=== PATIENT | male | born 1960 | race Caucasian/White ===

== ENCOUNTER 2024-06-26 07:59 | Emergency (ER) | payer MEDICARE, SELFPAY ==
--- NOTE | ~2024-06-26 | XR_ITS ---
EXAMINATION: XR CHEST CLINICAL INFORMATION: Chest pain. COMPARISON: Chest radiograph 06/19/2010. TECHNIQUE: Frontal view of the chest was obtained. FINDINGS: Normal heart size. Medium sternotomy wires, aortic valve replacement and mediastinal surgical clips are present. New multifocal reticular, hazy and nodular-like airspace opacities, for example nodular-like opacity measuring up to 2.6 cm overlying the region of the right anterior sixth rib. No pleural effusion. No pneumothorax. No displaced osseous fractures. 8 cervical spinal fusion hardware is noted. XR/XR chest 1V IMPRESSION: New multifocal reticular, hazy and nodular-like airspace opacities, recommend clinical correlation for acute respiratory infectious and inflammatory processes, and short-term follow-up with CT chest in 1-3 months to ensure resolution. Some of the nodular-like opacities overlie the ribs and might be associated with osseous abnormalities, though less favored; this should be followed up at the time of the CT chest. Electronically signed by: Neelam Garrison MD 06/26/2024 09:23 AM EDT
[2024-06-26 08:05] VITALS: BP 121/85; PULSE 111; RESP 18; TEMP 36.4; O2SAT 98
--- NOTE | 2024-06-26 08:05 | ECG_ITS ---
Test Reason : chest pain Blood Pressure : / mmHG Vent. Rate : 099 BPM Atrial Rate : 000 BPM P-R Int : 000 ms QRS Dur : 090 ms QT Int : 382 ms P-R-T Axes : 000 -37 077 degrees QTc Int : 490 ms Normal sinus rhythm with PAC's Left axis deviation Minimal voltage criteria for LVH, may be normal variant ( Aldo product ) Anterior infarct , age undetermined Abnormal ECG When compared with ECG of 21-NOV-2005 15:06, QRS axis Shifted left Premature atrial complexes are now Present Referred By: Generic ED Physician Electronically Signed By:FREDDIE CASAREZ
[2024-06-26 08:14] VITALS: BP 121/85; PULSE 105; RESP 20; TEMP 36.4; O2SAT 98; BMI 22.7
--- NOTE | 2024-06-26 08:22 | ED.CHESTPAIN ---
HPI - Chest Pain General Chief Complaint: Chest Pain Stated Complaint: Bilateral feet sweeling Time Seen by Provider: 06/26/24 08:06 Source: patient Mode of arrival: ambulatory Limitations: no limitations History of Present Illness HPI narrative: This is a 64 years old patient with history of coronary artery disease status post stent in [place] also status post valve replacement and chronic AFib anticoagulated with apixaban presented to the emergency department complaining of swelling of the feet for about 2 days and complaining of chest pain as well since yesterday pain is not exertional. 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 complaint: chest pain Pertinent past history: coronary artery disease Onset (ago): day(s) (1) Timing of current episode: episodic Onset: during rest Pain location: substernal and left chest Pain radiation: none Severity: mild Risk Factors Coronary artery disease risk factors: smoking history Thoracic aortic dissection risk factors: none Related Data Previous Rx's ?Medication ?Instructions ?Recorded furosemide 20 mg tablet (Lasix) 20 mg PO DAILY #20 tabs 06/26/24 metoprolol succinate 50 mg 50 mg PO DAILY #30 tabs 06/26/24 tablet,extended release 24 hr (Toprol XL) Allergies Allergy/AdvReac Type Severity Reaction Status Date / Time No Known Allergies Allergy Verified 06/26/24 08:19 Review of Systems Constitutional: Constitutional: Reports no additional constitutional complaints Eyes: Eyes: Reports no additional eye complaints ENT: Reports system reviewed and no additional complaints, except as documented Cardiovascular: Cardiovascular: Reports no additional cardiovascular complaints [facility] Past Medical History Attestation statement: The following information was validated with the patient. [facility] Narrative: CAD/valve replacement/AFib Social History Social History Smoked in Last 30 Days: Yes Use of substances other than those prescribed or required for medical reasons: Yes Substance Use Type: Marijuana Substance Use Frequency: Occasionally Advance Directives: No Advance Directives Information Provided: Yes Do you have a plan to hurt others: No Plan Physical Exam Vital Signs: Vital Signs: Last Vital Signs Temp 97.5 F 06/26/24 08:14 Pulse 89 06/26/24 10:00 Resp 16 06/26/24 10:00 BP 123/74 06/26/24 10:00 Pulse Ox 100 06/26/24 10:00 O2 Del Method Room Air 06/26/24 10:00 BMI result Body Mass Index 22.7 Const: General: cooperative Nutritional Appearance: average body habitus Orientation/consciousness: patient oriented x3 HEENT: Head: Yes normal to inspection General nose exam: Normal external nose present Face and sinus: Yes normal facial exam Neck: Neck: Yes normal visual inspection Chest: Chest palpation & inspection: normal inspection of the chest Resp: Effort & Inspection: normal respiratory effort Auscultation: clear to auscultation bilaterally Cardio: Jugular venous distension: no JVD Rhythm: abnormal rhythm GI: Inspection: Yes normal to inspection Palpation (GI): Soft to palpation, not firm, nontender and no guarding Percussion: Yes normal to percussion Skin: General skin exam: no rashes or lesions noted Neuro: General: patient oriented x3 Course Reevaluation(s) Reevaluation #1: Delta trop is flat, patient has an abnormal chest x-ray I was going to do a CT but the patient refused the CT. I consulted case liner, case liner Gabbie gave the patient a list of primary care physician accepting his insurance Time: 10:55 Medications Administered Discontinued Medications Generic Name Dose Route Start Last Admin Trade Name Freq PRN Reason Stop Dose Admin Furosemide 20 mg 06/26/24 08:27 06/26/24 08:40 Furosemide 20 Mg Tablet PO 06/26/24 08:28 20 mg ONCE ONE Administration Protocol Metoprolol Succinate 50 mg 06/26/24 08:27 06/26/24 08:40 Metoprolol Succinate Er 50 Mg Tab.Er.24h PO 06/26/24 08:28 50 mg ONCE ONE Administration Protocol Medical Decision Making Medical Decision Making [facility] Narrative: Patient presented with legs edema chest pain due EKG labs chest x-ray Differential Diagnosis Differential Diagnoses: The differential diagnosis associated with the presentation includes CHF/ACS/non cardiac chest pain Admission/Observation Consideration of admission/observation: Escalation of care including admission/observation considered Lab Data [facility] Lab Attestation statement: I reviewed the patient's lab results. 06/26/24 08:34 06/26/24 08:34 Labs: Lab Results 06/26/24 06/26/24 Range/Units 08:34 09:58 WBC 7.1 (4.8-10.8) X10*3/uL RBC 5.03 (4.60-5.80) X10*6/uL Hgb 13.9 L (14.0-18.0) g/dl Hct 42.8 (42.0-52.0) % MCV 85.1 (80.0-98.0) fL MCH 27.6 (27.0-33.0) pg MCHC 32.5 (31.0-36.0) g/dl RDW 17.8 H (11.0-16.0) % Plt Count 305 (160-400) X10*3/uL MPV 9.9 (9.4-12.4) fL Immature Gran % (Auto) 0.3 (0.0-0.4) % Neut % (Auto) 57.5 (45-73) % Lymph % (Auto) 20.1 (20-40) % Holmes % (Auto) 14.3 H (2-11) % Eos % (Auto) 5.5 H (0-4) % Baso % (Auto) 2.3 H (0-2) % Lymph # (Auto) 1.4 (1.2-4.9) X10*3/uL Holmes # (Auto) 1.0 (0.1-1.2) X10*3/uL Eos # (Auto) 0.4 (0.0-0.4) X10*3/uL Baso # (Auto) 0.2 (0.0-0.2) X10*3/uL Abs Immat Gran (auto) 0.02 (0.00-0.03) X10*3/uL Absolute Neuts (auto) 4.1 (2.0-8.3) x10*3/uL Absolute Nucleated RBC 0.000 (0.0-0.012) X10*3/uL Nucleated RBC % (auto) 0.0 (0.0-0.2) /100WBC Sodium 141 (135-145) mmol/L Potassium 4.1 (3.3-5.1) mmol/L Chloride 109 H (96-108) mmol/L Carbon Dioxide 26 (22-29) mmol/L Anion Gap 10 L (12-20) BUN 10 (9-16) mg/dL Creatinine 1.05 (0.5-1.4) mg/dL Estim Creat Clear Calc 74.2 Estimated GFR > 60 Random Glucose 102 (60-115) mg/dL Calcium 9.3 (8.4-10.2) mg/dL Total Bilirubin 0.5 (0.0-1.0) mg/dL AST 16 (5-37) U/L ALT 12 (0-40) U/L Alkaline Phosphatase 81 (39-117) U/L Troponin I High Sens < 2.7 2.7 (<3.5-35.0) ng/L B-Natriuretic Peptide 61 (<100) pg/mL Total Protein 6.3 L (6.5-8.0) g/dL Albumin 3.9 (3.5-5.0) g/dL Independent Interpretation I performed an independent interpretation of an: EKG (EKG shows atrial fibrillation rate 99) Chronic Conditions CAD Social Determinants Patient?s care significantly limited by Social Determinants of Health including: Inadequate housing and Low income Discharge Plan Discharge Clinical Impression: Ankle edema, bilateral Chest pain Qualifiers: Chest pain type: unspecified Qualified Code(s): R07.9 - Chest pain, unspecified Patient Disposition: Home, Self-Care Instructions: Chest Pain (ED) Additional Instructions: Please follow-up with cardiology call and make an appointment the numbers below, return to the emergency room if you are worse, low-salt diet please, within the prescription for you p.o. furosemide (Lasix) and metoprolol as well, continue with the Eliquis like you are doing Also you have an abnormal chest x-ray you should have an outpatient CT scan at some point. We were going to do the CT today but you refused the CT today. Prescriptions: New furosemide [Lasix] 20 mg tablet 20 mg PO DAILY Qty: 20 0RF metoprolol succinate [Toprol XL] 50 mg tablet extended release 24 hr 50 mg PO DAILY Qty: 30 0RF Referrals: Tate France MD [Physician] - 5 days Print Language: Haitian
[2024-06-26 08:37] LABS: MANUAL DIFF FLAG NO
[2024-06-26 08:40] VITALS: BP 121/85; PULSE 102
[2024-06-26] MEDS: Metoprolol Succinate ER 50 MG TAB.ER.24H PO (08:40)
[2024-06-26] MEDS: Furosemide 20 MG TABLET PO (08:40)
[2024-06-26 08:44] LABS: Basophils Absolute Auto 0.2 X10*3/uL (0.0-0.2); Basophils Percent Auto 2.3 % (0-2); Eosinophils Absolute Auto 0.4 X10*3/uL (0.0-0.4); Eosinophils Percent Auto 5.5 % (0-4); Hematocrit 42.8 % (42.0-52.0); Hemoglobin 13.9 g/dl (14.0-18.0); Imm Gran Abs Auto 0.02 X10*3/uL (0.00-0.03); Imm Gran Pct Auto 0.3 % (0.0-0.4); Lymphocytes Absolute Auto 1.4 X10*3/uL (1.2-4.9); Lymphocytes Percent Auto 20.1 % (20-40); Mean Corpuscular HGB Conc 32.5 g/dl (31.0-36.0); Mean Corpuscular Hemoglobin 27.6 pg (27.0-33.0); Mean Corpuscular Volume 85.1 fL (80.0-98.0); Mean Platelet Volume 9.9 fL (9.4-12.4); Monocytes Percent Auto 14.3 % (2-11); Neutrophils Absolute Auto 4.1 x10*3/uL (2.0-8.3); Neutrophils Percent Auto 57.5 % (45-73); Platelet Count 305 X10*3/uL (160-400); Red Blood Count 5.03 X10*6/uL (4.60-5.80); Red Cell Distribution Width 17.8 % (11.0-16.0); White Blood Count 7.1 X10*3/uL (4.8-10.8)
[2024-06-26 08:56] LABS: Alanine Aminotransferase 12 U/L (0-40); Albumin Level 3.9 g/dL (3.5-5.0); Alkaline Phosphatase 81 U/L (39-117); Anion Gap 10 (12-20); Aspartate Amino Transferase 16 U/L (5-37); Bilirubin Total 0.5 mg/dL (0.0-1.0); Blood Urea Nitrogen 10 mg/dL (9-16); Calcium 9.3 mg/dL (8.4-10.2); Carbon Dioxide 26 mmol/L (22-29); Chloride 109 mmol/L (96-108); Creatinine Clr Calc Pharmacy 74.2; Estimated Glomerular Filt Rate > 60; Glucose Random 102 mg/dL (60-115); Potassium 4.1 mmol/L (3.3-5.1); Sodium 141 mmol/L (135-145); Total Protein 6.3 g/dL (6.5-8.0)
[2024-06-26 08:59] LABS: B Type Natriuretic Peptide 61 pg/mL (<100)
[2024-06-26 09:06] LABS: Troponin-I High Sensitivity < 2.7 ng/L (<3.5-35.0)
[2024-06-26 10:00] VITALS: BP 123/74; PULSE 89; RESP 16; O2SAT 100
[2024-06-26 10:34] LABS: Troponin-I High Sensitivity 2.7 ng/L (<3.5-35.0)
--- NOTE | 2024-06-26 10:58 | MHC.CM.ED ---
Received case management consult from Dr Newton. Patient came to the ER due to leg swelling. Patient moved from [place] about 6 months ago and doesn't have a PCP. Patient has [facility]. List of PCP's contracted with patient's insurance and accepting new patients provided to patient. Explained patient will need to pick a provider, call their office to make sure they're contracted with his insurance and accepting new patients and then call insurance company to list that provider as his PCP. Patient stated Good luck with that. I must have called all of [place] and couldn't find anyone. Dr Newton aware.
[2024-06-26 11:32] VITALS: BP 119/72; PULSE 83; RESP 16; TEMP 36.6; O2SAT 99
== END 2024-06-26 11:39 | disposition home or self-care (01) ==
PROVIDERS: Emergency Provider Emergency Medicine
DX: R07.9 Chest pain, unspecified (principal); R60.0 Localized edema; F17.200 Nicotine dependence, unspecified, uncomplicated; I48.20 Chronic atrial fibrillation, unspecified; Z79.01 Long term (current) use of anticoagulants
CPT/HCPCS: 36415; 71045; 80053; 83880; 84484; 85025; 93005; 99285

== ENCOUNTER 2024-11-23 21:22 | Inpatient (IN) | payer MEDICARE, SELFPAY ==
--- NOTE | 2024-11-23 | ECG_ITS ---
Test Reason : SOB Blood Pressure : */* mmHG Vent. Rate : 134 BPM Atrial Rate : * BPM P-R Int : * ms QRS Dur : 120 ms QT Int : 350 ms P-R-T Axes : * -39 267 degrees QTcB Int : 522 ms Atrial fibrillation with rapid ventricular response Left axis deviation Minimal voltage criteria for LVH, may be normal variant ( Aldo product ) Cannot rule out Anterior infarct (cited on or before 26-Jun-2024) Abnormal ECG When compared with ECG of 26-Jun-2024 08:03, Increase in ventricular rate Referred By: Generic ED Physician Electronically Signed By: ROBIN MERAZ
--- NOTE | ~2024-11-23 | CT_ITS ---
CLINICAL HISTORY: Elevated lactic CTA abdomen and pelvis with IV contrast. 3D postprocessing Comparison: US/NV - US ABDOMEN LIMITED - 11/24/24 02:52 EST Findings: Right basilar atelectasis.Moderate right small left layering pleural effusions.Mild cardiomegaly. Calcified mitral annulus. Normal caliber abdominal aorta. Right common iliac:0.9 cm Left common iliac:0.9 cm Hypogastric arteries:No aneurysms. Renal arteries: Normal caliber. SMA:Normal caliber. Patent. PEDRO LUIS; Patent. Calcified atherosclerotic disease:Moderate to severe aortoiliac junction bilaterally. Hepatic steatosis.Probable hepatic cysts. Physiologic distention of the gallbladder with no radiopaque gallstones. Homogeneous enhancement of the pancreas. No splenomegaly. Normal adrenal glands. Symmetrical renal excretion with no segmental or diffuse renal parenchymal disease or evidence of obstructive uropathy/hydroureteronephrosis.Renal cortical cysts bilaterally.. Mesenteric edema. Small volume free ascites.Small-bowel enteritis.Motion may obscure subtle pathology including free air. Normal appendix and terminal ileum. Probable hepatic colopathy.No evidence of mechanical bowel obstruction. No intraperitoneal or retroperitoneal pelvic or inguinal masses lymphadenopathy or abnormal fluid collections..Well-distended urinary bladder. No prostatomegaly.. Disc cages L4-5 and L5-S1. No bony destructive lesions. Impression: 1. Hepatic steatosis. Trace ascites with mesenteric edema. Probable hepatic colopathy. Small-bowel enteritis without obstruction. 2. Bibasilar pleural-parenchymal disease more so on the right. Mild cardiomegaly. 3. Hepatic and renal cortical cysts can be confirmed with ultrasound. This document has been electronically signed by: Vasquez Choi MD on 11/24/2024 06:33:04
--- NOTE | ~2024-11-23 | XR_ITS ---
CLINICAL HISTORY: dyspnea 1 view chest x-ray Comparison: None Findings: Cardiomegaly with mild pulmonary vascular congestion and interstitial edema. Small right pleural effusion. No pneumothorax. No consolidation. IMPRESSION: 1. Cardiomegaly with mild pulmonary vascular congestion, mild interstitial edema, and small right pleural effusion suspected. This document has been electronically signed by: Angel Kaminski MD on 11/23/2024 23:13:15
--- NOTE | ~2024-11-23 | US_ITS ---
CLINICAL HISTORY: acute transaminitis US abdomen limited Comparison: None Findings: The visualized pancreas is normal. Pancreatic tail not visualized. The liver is normal in size and echotexture. 3 approximately 1 cm anechoic cysts are demonstrated in the liver, 1 in the left lobe and 2 in the right lobe. There is no intrahepatic bile duct dilatation. The common duct is to mm in diameter. There is sludge in the gallbladder. No stones. There is no sonographic Wilcox sign. Mild perihepatic ascites. The right kidney is 10.8 cm in length. There is a 5.7 cm x 5.1 cm x 5.6 cm anechoic simple right renal cyst. No hydronephrosis. IMPRESSION: 1. Gallbladder sludge. No gallbladder wall thickening. 2. Mild perihepatic ascites. 3. Gallbladder sludge. 4. 3 small simple hepatic cysts in large simple right renal cyst. This document has been electronically signed by: Yvette Sloan MD on 11/24/2024 04:32:52
--- NOTE | ~2024-11-23 | CT_ITS ---
CLINICAL HISTORY: SOB CT angiography chest with contrast. 3D Postprocessing. Comparison: CR - XR CHEST 1V - 11/23/24 22:34 EST Findings: The heart appears mildly enlarged. Reflux of contrast into the hepatic veins. No significant pericardial effusion. 4 cm ascending aorta. Evidence coronary artery bypass grafting. No acute pulmonary embolus. The visualized thyroid and mediastinum are unremarkable. [id number] right pleural effusion. A few scattered calcified granulomas are noted. Prior mitral valve replacement The upper abdomen is discussed on the concurrent CT abdomen pelvis report. No acute osseous findings. IMPRESSION: 1. No pulmonary emboli. 2. Small to moderate right pleural effusion. 3. 4 cm ascending aorta. This document has been electronically signed by: Romy Winter MD on 11/24/2024 06:56:38
[2024-11-23 21:32] VITALS: BP 101/72; PULSE 132; RESP 26; TEMP 36.3; O2SAT 98; BMI 21.3
--- NOTE | 2024-11-23 22:04 | ED_ITS ---
HPI - SOB/Dyspnea General Chief Complaint: Dyspnea Stated Complaint: SOB Time Seen by Provider: 11/23/24 22:00 Source: patient Mode of arrival: ambulatory Limitations: no limitations History of Present Illness ED Provider: DR. Correia HPI Narrative: A 64-year-old male with history of coronary artery disease s/p stent in [place], s/p valve replacement, chronic AFib on apixaban coming to the ED today for shortness of breath and rapid heart rate patient stated that he only take Eliquis for his AFib. patient overall is Poor historian stated that he has been having shortness of breath since February and he has been coming to the hospital for this symptoms with no relief of his symptoms. patient apparently is in rapid AFib while in the ED. Patient ran out of his medication supposed to be on metoprolol and Lasix that the patient confirmed that he is not taking him for sometime now. Related Data Previous Rx's ?Medication ?Instructions ?Recorded furosemide 20 mg tablet (Lasix) 20 mg PO DAILY #20 tabs 06/26/24 metoprolol succinate 50 mg 50 mg PO DAILY #30 tabs 06/26/24 tablet,extended release 24 hr (Toprol XL) Allergies Allergy/AdvReac Type Severity Reaction Status Date / Time No Known Allergies Allergy Verified 11/23/24 21:33 Review of Systems 2 Review of Systems: All other systems are reviewed and are negative Constitutional: Reports as per HPI and Reports no additional constitutional complaints Eyes: Reports as per HPI and Reports no additional eye complaints Reports system reviewed and no additional complaints, except as documented Cardiovascular: Reports as per HPI and Reports no additional cardiovascular complaints Respiratory: Reports as per HPI and Reports no additional respiratory complaints Gastrointestinal: Reports as per HPI and Reports no additional gastrointestinal complaints Genitourinary: Reports no additional female genitourinary complaints Musculoskeletal: Reports no additional musculoskeletal complaints Skin/Breast: Reports system reviewed and no additional complaints, except as docu Psychiatric: Reports no additional psychiatric complaints Endocrine: Reports no additional endocrine complaints Hematologic/Lymphatic: Reports no additional hematologic/lymphatic complaints Allergic/Immunologic: Reports no additional allergic/immunologic complaints Reports system reviewed and no additional complaints, except as documented and Reports Abnormal speech present PMFSH Social History Social History Substance Use Type: Marijuana Advance Directives: No Advance Directives Information Provided: No Do you have a plan to hurt others: No Plan Physical Exam 2 Vital Signs: Vital Signs: Last Vital Signs Temp 98.3 F 11/23/24 23:20 Pulse 104 H 11/24/24 04:59 Resp 30 H 11/24/24 05:09 BP 98/52 L 11/24/24 05:09 Pulse Ox 100 11/24/24 05:09 O2 Del Method Room Air 11/24/24 05:09 BMI result Body Mass Index 21.3 Vital signs have been reviewed and appear to be correct. Blood pressure elevated. Heart rate is elevated. Tachypneic, Temperature normal. Oxygen saturation normal. Appearance: Alert. Oriented X3. No acute distress. Head: Normal external exam. Normocephalic. Atraumatic. No Philip signs noted. No raccoon eyes noted Eyes: PERRLA. EOMI. Conjunctiva and sclera normal. Eyelids normal. + jaundice. ENT: TM's Normal. Pharynx normal. Uvula midline. Moist mucous membranes. No trismus noted. No drooling noted. No muffled voice noted. Neck: Normal inspection. Neck supple. FROM. No adenopathy. Thyroid Normal. No meningeal signs. No neck mass noted. CVS: rapid and irregular irregular heart rate, No murmurs noted. Pulses normal throughout. Respiratory: Mild respiratory distress. Painless inspiration. Breath sounds normal. No wheezes/rales/rhonchi noted. Chest nontender. No accessory muscle usage noted or decreased air movement noted. Abdomen: Soft and nontender. Bowel sounds normal in all 4 quadrants. No distention noted. No organomegaly noted. No visible injury noted. Back: No CVA tenderness. Full range of motion noted. Skin: Skin warm and dry. Normal skin color. Normal skin turgor. No rashes/lesions/lacerations noted. Extremities: No lower extremity edema. Extremities exhibit normal range of motion. Extremities nontender. Neuro: Oriented X 3. Cranial nerve exam: II-XII are grossly intact No motor deficit. No sensory deficit. Reflexes normal. Course Reevaluation(s) Reevaluation #1: rapid AFib, SOB, not compliant to his medication beta-paolo/ Lasix. 1. labs is consistent with acute liver failure with transaminitis and a hyperammonemia, and elevated INR 2. severe lactic acidosis secondary to acute liver failure. 3. No septic shock or severe sepsis a dose prophylactic ceftriaxone was given. 4. Hypotension responded well to boluses of normal saline. 5. Patient now is tachypneic, repeat cardiac exam consistent with CHF will administered 20 mg of Lasix. 6. Repeat EKG shows atrial fibrillation at 113 per minute. Case was discussed with Dr. Aquino, Dr. Rubin. Will admit the patient to ICU. Time: 01:00 Reevaluation #2: patient exam is consistent with mild CHF will gently diurese the patient, patient is going for a CT abdomen and pelvis. Time: 04:17 Medications Administered Discontinued Medications Generic Name Dose Route Start Last Admin Trade Name Freq PRN Reason Stop Dose Admin Ceftriaxone Sodium 1 gm 11/23/24 23:13 11/24/24 02:33 Ceftriaxone Sodium 1 Gm Vial IVPUSH 11/23/24 23:14 1 gm ONCE ONE Administration Fentanyl 50 mcg 11/24/24 04:45 11/24/24 04:56 Fentanyl Citrate/Pf 100 Mcg/2 Ml Vial IVPUSH 11/24/24 04:46 50 mcg ONCE ONE Administration Protocol Furosemide 20 mg 11/23/24 22:06 11/23/24 22:32 Furosemide 20 Mg/2 Ml Vial IVPUSH 11/23/24 22:07 20 mg ONCE ONE Administration Protocol Sodium Chloride 1,000 mls @ 500 mls/hr 11/23/24 22:42 11/23/24 23:45 Ns IV 11/24/24 00:41 Infused .Q2H ONE Infusion Sodium Chloride 1,000 mls @ 999 mls/hr 11/23/24 23:24 11/24/24 03:34 Ns IV 11/24/24 00:24 Infused .Q1H1M ONE Infusion Lactulose 60 gm 11/23/24 23:13 11/24/24 02:33 Lactulose 20 Gm/30 Ml Solution PO 11/23/24 23:14 60 gm ONCE ONE Administration Metoprolol Tartrate 5 mg 11/23/24 22:06 11/23/24 22:32 Metoprolol Tartrate 5 Mg/5 Ml Vial IVPUSH 11/23/24 22:07 5 mg ONCE ONE Administration Protocol Morphine Sulfate 1 mg 11/24/24 03:47 11/24/24 03:56 Morphine Sulfate 2 Mg/Ml Cartridge IVPUSH 11/24/24 03:48 1 mg ONCE ONE Administration Protocol Medical Decision Making Differential Diagnosis Differential Diagnoses: The differential diagnosis associated with the presentation includes ( ACS, rapid AFib, CHF, pneumothorax, pleural effusion, asthma exacerbation, electrolyte derangement, severe anemia, Acute liver failure, hyperammonemia, transaminitis.) Admission/Observation Consideration of admission/observation: Escalation of care including admission/observation considered Consult Healthcare Provider Management of the patient was discussed with: Hospitalist (Dr. Hillman) Lab Data MDM Lab Attestation statement: I reviewed the patient's lab results. 11/23/24 22:35 11/23/24 21:54 Labs: Lab Results 11/23/24 11/23/24 11/23/24 Range/Units 21:53 21:54 22:35 WBC 11.1 H (4.8-10.8) X10*3/uL RBC 4.49 L (4.60-5.80) X10*6/uL Hgb 14.2 (14.0-18.0) g/dl Hct 40.1 L (42.0-52.0) % MCV 89.3 (80.0-98.0) fL MCH 31.6 (27.0-33.0) pg MCHC 35.4 (31.0-36.0) g/dl RDW 17.7 H (11.0-16.0) % Plt Count 171 D (160-400) X10*3/uL MPV 10.5 (9.4-12.4) fL Immature Gran % (Auto) 0.5 H (0.0-0.4) % Neut % (Auto) 82.9 H (45-73) % Lymph % (Auto) 8.4 L (20-40) % [place] % (Auto) 8.1 (2-11) % Eos % (Auto) 0.1 (0-4) % Baso % (Auto) 0.0 (0-2) % Lymph # (Auto) 0.9 L (1.2-4.9) X10*3/uL [place] # (Auto) 0.9 (0.1-1.2) X10*3/uL Eos # (Auto) 0.0 (0.0-0.4) X10*3/uL Baso # (Auto) 0.0 (0.0-0.2) X10*3/uL Abs Immat Gran (auto) 0.05 H (0.00-0.03) X10*3/uL Absolute Neuts (auto) 9.2 H (2.0-8.3) x10*3/uL Absolute Nucleated RBC 0.090 H (0.0-0.012) X10*3/uL Nucleated RBC % (auto) 0.8 H (0.0-0.2) /100WBC PT 172.1 H (10.9-12.4) SEC INR 14.7 H* (0.9-1.1) VBG pH 7.50 H (7.32-7.43) VBG pCO2 13 mmHg VBG pO2 149 mmHg VBG HCO3 10 L (22-26) mmol/L VBG O2 Saturation 99.0 % VBG Base Excess -8.7 mmol/L Sodium 130 L (135-145) mmol/L Potassium 5.2 H D (3.3-5.1) mmol/L Chloride 102 (96-108) mmol/L Carbon Dioxide 12 L (22-29) mmol/L Anion Gap 21 H (12-20) BUN 82 H (9-16) mg/dL Creatinine 1.85 H (0.5-1.4) mg/dL Estim Creat Clear Calc 36.2 Estimated GFR 37 Random Glucose 93 (60-115) mg/dL Lactic Acid (0.5-2.0) mmol/L Calcium 8.2 L D (8.4-10.2) mg/dL Total Bilirubin 5.6 H (0.0-1.0) mg/dL AST 1171 H (5-37) U/L ALT 1563 H (0-40) U/L Alkaline Phosphatase 160 H (39-117) U/L Ammonia (13-55) umol/L Troponin I High Sens 321.9 H* D (<3.5-35.0) ng/L B-Natriuretic Peptide 3307 H (<100) pg/mL Total Protein 5.5 L (6.5-8.0) g/dL Albumin 3.5 (3.5-5.0) g/dL Lipase 34 (8-78) U/L Hold Red Top Urine Color Urine Appearance Urine pH (5.0-9.0) Ur Specific [place] (1.005-1.025) Urine Protein (Neg-Trace) mg/dL Urine Glucose (UA) (Negative) mg/dL Urine Ketones (Negative) mg/dL Urine Blood (Negative) Urine Nitrite (Negative) Ur Leukocyte Esterase (Negative) Urine Opiates Screen (Not Detect) Ur Buprenorphine Scrn (Not Detect) ng/mL Ur Oxycodone Screen (Not Detect) ng/mL Urine Methadone Screen (Not Detect) ng/mL Urine Fentanyl Screen (Not Detect) Acetaminophen (<30) mcg/mL Ur Barbiturates Screen (Not Detect) Ur Phencyclidine Scrn (Not Detect) Ur Amphetamines Screen (Not Detect) U Benzodiazepines Scrn (Not Detect) Urine Cocaine Screen (Not Detect) U Marijuana (THC) Screen (Not Detect) Influenza Type A (PCR) NEGATIVE (Negative) Influenza Type B (PCR) NEGATIVE (Negative) RSV RNA Qual (PCR) NEGATIVE (Negative) SARS-CoV-2 RNA (RT-PCR) NEGATIVE (Negative) 11/23/24 11/24/24 11/24/24 Range/Units 22:52 01:14 01:15 WBC (4.8-10.8) X10*3/uL RBC (4.60-5.80) X10*6/uL Hgb (14.0-18.0) g/dl Hct (42.0-52.0) % MCV (80.0-98.0) fL MCH (27.0-33.0) pg MCHC (31.0-36.0) g/dl RDW (11.0-16.0) % Plt Count (160-400) X10*3/uL MPV (9.4-12.4) fL Immature Gran % (Auto) (0.0-0.4) % Neut % (Auto) (45-73) % Lymph % (Auto) (20-40) % [place] % (Auto) (2-11) % Eos % (Auto) (0-4) % Baso % (Auto) (0-2) % Lymph # (Auto) (1.2-4.9) X10*3/uL [place] # (Auto) (0.1-1.2) X10*3/uL Eos # (Auto) (0.0-0.4) X10*3/uL Baso # (Auto) (0.0-0.2) X10*3/uL Abs Immat Gran (auto) (0.00-0.03) X10*3/uL Absolute Neuts (auto) (2.0-8.3) x10*3/uL Absolute Nucleated RBC (0.0-0.012) X10*3/uL Nucleated RBC % (auto) (0.0-0.2) /100WBC PT (10.9-12.4) SEC INR (0.9-1.1) VBG pH (7.32-7.43) VBG pCO2 mmHg VBG pO2 mmHg VBG HCO3 (22-26) mmol/L VBG O2 Saturation % VBG Base Excess mmol/L Sodium (135-145) mmol/L Potassium (3.3-5.1) mmol/L Chloride (96-108) mmol/L Carbon Dioxide (22-29) mmol/L Anion Gap (12-20) BUN (9-16) mg/dL Creatinine (0.5-1.4) mg/dL Estim Creat Clear Calc Estimated GFR Random Glucose (60-115) mg/dL Lactic Acid 9.3 H* (0.5-2.0) mmol/L Calcium (8.4-10.2) mg/dL Total Bilirubin (0.0-1.0) mg/dL AST (5-37) U/L ALT (0-40) U/L Alkaline Phosphatase (39-117) U/L Ammonia 157 H (13-55) umol/L Troponin I High Sens 443.3 H* (<3.5-35.0) ng/L B-Natriuretic Peptide (<100) pg/mL Total Protein (6.5-8.0) g/dL Albumin (3.5-5.0) g/dL Lipase (8-78) U/L Hold Red Top Urine Color Urine Appearance Urine pH (5.0-9.0) Ur Specific [place] (1.005-1.025) Urine Protein (Neg-Trace) mg/dL Urine Glucose (UA) (Negative) mg/dL Urine Ketones (Negative) mg/dL Urine Blood (Negative) Urine Nitrite (Negative) Ur Leukocyte Esterase (Negative) Urine Opiates Screen (Not Detect) Ur Buprenorphine Scrn (Not Detect) ng/mL Ur Oxycodone Screen (Not Detect) ng/mL Urine Methadone Screen (Not Detect) ng/mL Urine Fentanyl Screen (Not Detect) Acetaminophen (<30) mcg/mL Ur Barbiturates Screen (Not Detect) Ur Phencyclidine Scrn (Not Detect) Ur Amphetamines Screen (Not Detect) U Benzodiazepines Scrn (Not Detect) Urine Cocaine Screen (Not Detect) U Marijuana (THC) Screen (Not Detect) Influenza Type A (PCR) (Negative) Influenza Type B (PCR) (Negative) RSV RNA Qual (PCR) (Negative) SARS-CoV-2 RNA (RT-PCR) (Negative) 11/24/24 11/24/24 11/24/24 Range/Units 02:20 02:28 04:04 WBC (4.8-10.8) X10*3/uL RBC (4.60-5.80) X10*6/uL Hgb (14.0-18.0) g/dl Hct (42.0-52.0) % MCV (80.0-98.0) fL MCH (27.0-33.0) pg MCHC (31.0-36.0) g/dl RDW (11.0-16.0) % Plt Count (160-400) X10*3/uL MPV (9.4-12.4) fL Immature Gran % (Auto) (0.0-0.4) % Neut % (Auto) (45-73) % Lymph % (Auto) (20-40) % [place] % (Auto) (2-11) % Eos % (Auto) (0-4) % Baso % (Auto) (0-2) % Lymph # (Auto) (1.2-4.9) X10*3/uL [place] # (Auto) (0.1-1.2) X10*3/uL Eos # (Auto) (0.0-0.4) X10*3/uL Baso # (Auto) (0.0-0.2) X10*3/uL Abs Immat Gran (auto) (0.00-0.03) X10*3/uL Absolute Neuts (auto) (2.0-8.3) x10*3/uL Absolute Nucleated RBC (0.0-0.012) X10*3/uL Nucleated RBC % (auto) (0.0-0.2) /100WBC PT (10.9-12.4) SEC INR (0.9-1.1) VBG pH 7.28 L (7.32-7.43) VBG pCO2 28 mmHg VBG pO2 30 mmHg VBG HCO3 14 L (22-26) mmol/L VBG O2 Saturation 32.0 % VBG Base Excess -10.9 mmol/L Sodium (135-145) mmol/L Potassium (3.3-5.1) mmol/L Chloride (96-108) mmol/L Carbon Dioxide (22-29) mmol/L Anion Gap (12-20) BUN (9-16) mg/dL Creatinine (0.5-1.4) mg/dL Estim Creat Clear Calc Estimated GFR Random Glucose (60-115) mg/dL Lactic Acid (0.5-2.0) mmol/L Calcium (8.4-10.2) mg/dL Total Bilirubin (0.0-1.0) mg/dL AST (5-37) U/L ALT (0-40) U/L Alkaline Phosphatase (39-117) U/L Ammonia (13-55) umol/L Troponin I High Sens (<3.5-35.0) ng/L B-Natriuretic Peptide (<100) pg/mL Total Protein (6.5-8.0) g/dL Albumin (3.5-5.0) g/dL Lipase (8-78) U/L Hold Red Top See Note Urine Color Dark Yellow Urine Appearance Clear Urine pH 5.5 (5.0-9.0) Ur Specific [place] 1.020 (1.005-1.025) Urine Protein Trace (Neg-Trace) mg/dL Urine Glucose (UA) Negative (Negative) mg/dL Urine Ketones Negative (Negative) mg/dL Urine Blood Negative (Negative) Urine Nitrite Negative (Negative) Ur Leukocyte Esterase Negative (Negative) Urine Opiates Screen Not Detected (Not Detect) Ur Buprenorphine Scrn Not Detected (Not Detect) ng/mL Ur Oxycodone Screen Not Detected (Not Detect) ng/mL Urine Methadone Screen Not Detected (Not Detect) ng/mL Urine Fentanyl Screen Not Detected (Not Detect) Acetaminophen < 3 (<30) mcg/mL Ur Barbiturates Screen Not Detected (Not Detect) Ur Phencyclidine Scrn Not Detected (Not Detect) Ur Amphetamines Screen Not Detected (Not Detect) U Benzodiazepines Scrn Not Detected (Not Detect) Urine Cocaine Screen Not Detected (Not Detect) U Marijuana (THC) Screen Not Detected (Not Detect) Influenza Type A (PCR) (Negative) Influenza Type B (PCR) (Negative) RSV RNA Qual (PCR) (Negative) SARS-CoV-2 RNA (RT-PCR) (Negative) Independent Interpretation I performed an independent interpretation of an: Plain X-Ray and Ultrasound (Abdominal:. Gallbladder sludge. No gallbladder wall thickening. 2. Mild perihepatic ascites. 3. Gallbladder sludge. 4. 3 small simple hepatic cysts in large simple right renal cyst.) Radiology Impression Discussion of test interpretation with radiology: I have reviewed the radiologist's reading. Critical Care Time Critical Care Time Critical Care Time: Yes Total Critical Care Time: 60 Attestation: The patient was critically ill with a high probability of imminent or life- threatening deterioration. I spent greater than 30 minutes of discontinuous time evaluating the patient, delivering critical care at the bedside, discussing evaluating data with consultants. Critical care time does not include time spent performing separately billable procedures or teaching. Time spent performing critical care was 60 minutes. Discharge Plan Discharge Clinical Impression: Atrial fibrillation with rapid ventricular response, Dyspnea, Transaminitis, Elevated troponin, Acute hypotension, Septic shock, Congestive heart failure, Jaundice Patient Disposition: Admitted As Inpatient
[2024-11-23 22:08] LABS: VBG Base Excess -8.7 mmol/L; VBG HCO3 10 mmol/L (22-26); VBG pCO2 13 mmHg; VBG pO2 149 mmHg; Venous Blood Gas Refer to POC result
[2024-11-23 22:21] LABS: Albumin Level 3.5 g/dL (3.5-5.0); Anion Gap 21 (12-20); Bilirubin Total 5.6 mg/dL (0.0-1.0); Blood Urea Nitrogen 82 mg/dL (9-16); Calcium 8.2 mg/dL (8.4-10.2); Carbon Dioxide 12 mmol/L (22-29); Chloride 102 mmol/L (96-108); Creatinine Clr Calc Pharmacy 36.2; Estimated Glomerular Filt Rate 37; Glucose Random 93 mg/dL (60-115); Potassium 5.2 mmol/L (3.3-5.1); Sodium 130 mmol/L (135-145); Total Protein 5.5 g/dL (6.5-8.0)
[2024-11-23 22:22] LABS: Alkaline Phosphatase 160 U/L (39-117); Aspartate Amino Transferase 1171 U/L (5-37); Lipase 34 U/L (8-78)
[2024-11-23 22:29] LABS: Alanine Aminotransferase 1563 U/L (0-40); Troponin-I High Sensitivity 321.9 ng/L (<3.5-35.0)
[2024-11-23] MEDS: Furosemide 20 MG/2 ML VIAL IVPUSH (22:32)
[2024-11-23] MEDS: Metoprolol Tartrate 5 MG/5 ML VIAL IVPUSH (22:32)
[2024-11-23 22:35] LABS: Prothrombin Time 172.1 SEC (10.9-12.4)
[2024-11-23 22:37] LABS: INTERNATIONAL NORM RATIO 14.7 (0.9-1.1)
[2024-11-23 22:39] LABS: MANUAL DIFF FLAG NO
[2024-11-23 22:40] LABS: Eosinophils Percent Auto 0.1 % (0-4); Hematocrit 40.1 % (42.0-52.0); Hemoglobin 14.2 g/dl (14.0-18.0); Imm Gran Abs Auto 0.05 X10*3/uL (0.00-0.03); Imm Gran Pct Auto 0.5 % (0.0-0.4); Lymphocytes Absolute Auto 0.9 X10*3/uL (1.2-4.9); Lymphocytes Percent Auto 8.4 % (20-40); Mean Corpuscular HGB Conc 35.4 g/dl (31.0-36.0); Mean Corpuscular Hemoglobin 31.6 pg (27.0-33.0); Mean Corpuscular Volume 89.3 fL (80.0-98.0); Mean Platelet Volume 10.5 fL (9.4-12.4); Monocytes Absolute Auto 0.9 X10*3/uL (0.1-1.2); Monocytes Percent Auto 8.1 % (2-11); NRBC Pct Auto 0.8 /100WBC (0.0-0.2); Neutrophils Absolute Auto 9.2 x10*3/uL (2.0-8.3); Neutrophils Percent Auto 82.9 % (45-73); Platelet Count 171 X10*3/uL (160-400); Red Blood Count 4.49 X10*6/uL (4.60-5.80); Red Cell Distribution Width 17.7 % (11.0-16.0); White Blood Count 11.1 X10*3/uL (4.8-10.8)
[2024-11-23 22:42] LABS: Influenza A PCR NEGATIVE (Negative); Influenza B PCR NEGATIVE (Negative); Resp Syncy Virus RNA Qual PCR NEGATIVE (Negative); SARS COV2 PCR INHOUSE NEGATIVE (Negative)
[2024-11-23] MEDS: 0.9 % Sodium Chloride 1,000 ML 500 ML IV (23:04)
[2024-11-23 23:09] LABS: Ammonia 157 umol/L (13-55)
[2024-11-23 23:20] VITALS: BP 89/55; PULSE 83; RESP 16; TEMP 36.8; O2SAT 96
[2024-11-23 23:27] LABS: B Type Natriuretic Peptide 3307 pg/mL (<100)
[2024-11-23 23:57] VITALS: BP 101/77; PULSE 114; RESP 30; O2SAT 94
[2024-11-24] VITALS (40 sets, daily range): BP systolic 79–144; BP diastolic 20–81; PULSE 46–134; RESP 20–48; TEMP 36.1–36.9; O2SAT 90–100; BMI 23.8
--- NOTE | 2024-11-24 00:10 | MHC.EDTECH ---
Attempted blood draw, unsuccessful. Pt not very cooperative with laying still. Pt stating just leave me to . Pt also keeps holding breath and then having respiratory rate of high 40's. Vitals updated. RN aware.
--- NOTE | 2024-11-24 01:23 | PC.NURSE ---
Patient is a difficult stick. Patient was initially not cooperating or agreeing with blood draws. Dr. Correia spoke with the patient explaining the reasons for blood draws, and patient then agreed. Troponin & Lactic acid were drawn, but hemolyzed. 1st set of blood cultures were drawn and sent to lab a few minutes ago. I called phlebotomy, who agreed to come to ED to attempt 2nd set of blood cultures, troponin level, and lactic acid level. Dr. Correia aware of difficult sticks and delay in receiving fluids/medications. Plan for ultrasound.
[2024-11-24 01:43] LABS: Lactic Acid 9.3 mmol/L (0.5-2.0)
[2024-11-24 01:44] LABS: Troponin-I High Sensitivity 443.3 ng/L (<3.5-35.0)
--- NOTE | 2024-11-24 02:20 | PC.NURSE ---
to bedside to insert left EJ on patient due to difficult stick and missing labs. Multiple attempts made by Harley Rodriguez Natalie M., this RN, lAeena RN, and phlebotomy without success. IV access in right hand that was inserted prior to this RN's shift doesn't give blood back and is positional. Patient is tachypnic, tachycardic, anxious, reports feeling cold but is afebrile. I spoke with Dr. Correia regarding initiating IV fluids that were ordered at 23:14, and administering IV antibiotics since the 1st blood culture was obtained, and patient has multiple critical labs. Dr. Correia stated I really want the 2nd blood cultures, we really need them, let's put an EJ in and keep trying to get the 2nd cultures . As instructed, I held 2nd bag of IVF and antibiotics until 2nd cultures were obtained. Dr. Lockwood able to insert 18g IV to left EJ with minimal difficulty. Labs drawn and sent for analysis (2nd blood cultures, VBG). Sepsis protocol initiated at 01:14am by this RN. Patient is whining, at times uncooperative with plan of care. Stressed the importance and risks associated with not getting sepsis workup/treatment.
[2024-11-24] MEDS: 0.9 % Sodium Chloride 1,000 ML 999 ML IV (02:33)
[2024-11-24] MEDS: Lactulose 20 GM/30 ML SOLUTION 60 GM PO (02:33)
[2024-11-24] MEDS: cefTRIAXone sodium 1 GM VIAL IVPUSH ×2 (02:33→08:39)
[2024-11-24 02:36] LABS: VBG Base Excess -10.9 mmol/L; VBG HCO3 14 mmol/L (22-26); VBG pCO2 28 mmHg; VBG pH 7.28 (7.32-7.43); VBG pO2 30 mmHg
[2024-11-24 02:38] LABS: Venous Blood Gas Refer to POC result
[2024-11-24 03:25] LABS: Reflex Lactate? Lactic Acid Added
--- NOTE | 2024-11-24 03:34 | PC.NURSE ---
received report from marguerite at 0325. pt awake and alert, vitals updated
--- NOTE | 2024-11-24 03:50 | ECG_ITS ---
Test Reason : [place] Blood Pressure : */* mmHG Vent. Rate : 113 BPM Atrial Rate : * BPM P-R Int : * ms QRS Dur : 124 ms QT Int : 406 ms P-R-T Axes : * -72 105 degrees QTcB Int : 556 ms Atrial fibrillation with rapid ventricular response Left axis deviation Minimal voltage criteria for LVH, may be normal variant ( Aldo product ) Anterior infarct (cited on or before 26-Jun-2024) Abnormal ECG When compared with ECG of 23-Nov-2024 21:41, Nonspecific T wave abnormality, worse in Lateral leads Referred By: Gogo Correia Electronically Signed By: ROBIN MERAZ
[2024-11-24] MEDS: Morphine Sulfate 2 MG/ML CARTRIDGE 1 MG IVPUSH (03:56)
[2024-11-24 04:11] LABS: Appearance Urine Clear; Color Urine Dark Yellow; Glucose Urine UA Negative (Negative); Leukocyte Esterase Urine Negative (Negative); Nitrite Urine Negative (Negative); PH 5.5 (5.0-9.0); Urine Blood Negative (Negative); Urine Ketones Negative (Negative); Urine Protein Trace mg/dL (Neg-Trace)
[2024-11-24 04:20] LABS: Amphetamine Screen Urine Not Detected (Not Detect); Barbiturates, Urine Not Detected (Not Detect); Benzodiazepines Screen Urine Not Detected (Not Detect); Buprenorphine Scr Not Detected (Not Detect); Cannabinoid Screen Urine Not Detected (Not Detect); Cocaine Screen Urine Not Detected (Not Detect); Fentanyl, urine Not Detected (Not Detect); Methadone Screen, Urine Not Detected (Not Detect); Opiate Screen Urine Not Detected (Not Detect); Oxycodone Screen Urine Not Detected (Not Detect); Phencyclidine Screen Urine Not Detected (Not Detect)
[2024-11-24 04:39] LABS: Acetaminophen LAB < 3 mcg/mL (<30)
[2024-11-24] MEDS: fentaNYL citrate/PF 100 MCG/2 ML VIAL 50 MCG IVPUSH (04:56)
--- NOTE | 2024-11-24 05:04 | P.HPCC_ITS ---
History of Present Illness Date of Service: 11/24/24 Attending physician on admission: Romy Rubin Chief Complaint: SOB The patient is a 64-year-old male with a past medical history of coronary artery disease s/p? stent in [place], s/p valve replacement,? atrial fibrillation on Eliquis,? who presented to the emergency department with dyspnea and rapid heart rate.? Patient is a poor historian,? but reports he was seen before in may of 2024 in the emergency department for similar symptoms,? was apparently in rapid AFib,? was discharged on metoprolol and Lasix was advised to follow up with Cardiology.? Patient now reports has not been taking medications for some time now.? ? On arrival to? emergency department,? patient has AFib? 130s, tachypneic to 20s and 30s, satting 98% on room air,? initial blood pressure 101/72, ? But later becoming hypotensive to systolic of 80s.? ? JAUNDICE SKIN Laboratory data significant for WBC 11.1, PT 172.1, INR 14.7, sodium 130, potassium? 5.2, serum bicarb 12, anion gap 21, BUN 82, creatinine 1.85, calcium 8.2, total bilirubin 5.6,? AST 1171,? ALT 1563, alk phos 160, ammonia 157, BNP 3307, ? trop? 321 repat 443.? Lactic acid 9.3 ?Venous gas:? 7. IMAGING:? Chest x-ray:? consistent with mild pulmonary edema Abdominal US:? 1. Gallbladder sludge. No gallbladder wall thickening. 2. Mild perihepatic ascites. 3. Gallbladder sludge. 4. 3 small simple hepatic cysts in large simple right renal cyst. ED course:? ?Patient received 5 mg of IV push Lopressor,? Lasix 20mg x 2,? 2 L bolus of normal saline, lactulose 60 g, and ceftriaxone 1g Review of Systems 2 Review of Systems: Yes all other systems are reviewed and are negative PMFSH Social History Social History Household Members: Other Household Members Other:: Nephew Housing: House Do you presently have visiting nurse or other home services: No Patient Tobacco Use Status: Current someday Tobacco user Tobacco use type: Cigarette Cigarettes Per Day: 2 Smoked in Last 30 Days: Yes Patient Interested in Nicotine Replacement: No Patient Given Instructions on How to Stop Smoking: Yes Date Education Initiated: 11/24/24 Second Hand Smoke Exposure: Yes Use of substances other than those prescribed or required for medical reasons: No Substance Use Type: Marijuana Have you been hit, kicked, punched, or otherwise hurt by someone within the past year? If so, by whom?: No Do you feel safe in your current relationship?: No Current Relationship Is there a partner from a previous relationship who is making you feel unsafe now?: No Are you made to feel afraid or neglected: No Spiritual Healthcare Practices: none per patient Confucianism Healthcare Practices: none per patient Cultural Healthcare Practices: none per patient Advance Directives: No Advance Directives Information Provided: No Advance Directives on File: No Do you have a plan to hurt others: No Plan Recently lost weight without trying: No Eating poorly because of decreased appetite: No Nutrition Risks: No Nutritional Risk Poor oral hygiene: Yes Meds Allergies Allergy/AdvReac Type Severity Reaction Status Date / Time No Known Allergies Allergy Verified 11/23/24 21:33 Home Medications ?Medication ?Instructions ?Recorded ?Confirmed ?Last Taken ?Type apixaban 5 mg tablet (Eliquis) 5 mg PO BID 11/24/24 Unknown History duloxetine 60 mg capsule,delayed 60 mg PO DAILY 11/24/24 Unknown History release fluticasone 250 mcg-salmeterol 50 inh inhalation BID 11/24/24 Unknown History mcg/dose blistr powdr for inhalation (Advair Diskus) hydroxyzine HCl 25 mg tablet 25 mg PO QID PRN anxiety 11/24/24 Unknown History metoprolol tartrate 50 mg tablet 50 mg PO DAILY 11/24/24 Unknown History risperidone 1 mg tablet 1 mg PO DAILY 11/24/24 Unknown History risperidone 2 mg tablet 2 mg PO BEDTIME 11/24/24 Unknown History simvastatin 40 mg tablet 40 mg PO QPM 11/24/24 Unknown History tiotropium bromide 18 mcg capsule 18 mcg inhalation DAILY 11/24/24 Unknown History with inhalation device (Spiriva with HandiHaler) trazodone 100 mg tablet 100 mg PO BEDTIME 11/24/24 Unknown History Physical Exam 2 Vital Signs: Vital Signs: Last Vital Signs Temp 98.3 F 11/23/24 23:20 Pulse 104 H 11/24/24 04:59 Resp 28 H 11/24/24 04:59 BP 97/49 L 11/24/24 04:59 Pulse Ox 100 11/24/24 04:59 O2 Del Method Room Air 11/24/24 04:59 BMI result Body Mass Index 21.3 ?General:? Alert oriented x3 no acute distress.? At times refusing to answer questions. ?HEENT:? Sclerae are jaundiced. Head is normocephalic, atraumatic, pupils equal round reactive to light accommodation bilaterally.? Extraocular movements appear intact.? Buccal mucosa is dry, Neck is supple ?Cardiac:? AFib 90-110s. no murmurs rubs or gallops. Reduced capillary refills ?Pulmonary:? Rhonchus at bases. No wheezes ?Abdomen:? ?Abdomen soft, mild diffuse tenderness upper quadrants. non- distended. Normal bowel sounds ?Musculoskeletal:? Moving all 4 extremities upon request a major joints, there is no crepitus or tenderness.? The strength is 5/5 bilaterally and throughout all 4 extremities.? Gait not assessed at this point. ?Neurologic:?No focal deficits noted.Motor strength as above.?? ?Skin: Jaundiced skin. No ulcers. Vascular:? 2+ pulses upper and lower extremities distally.? Results Labs 11/23/24 22:35 11/23/24 21:54 Labs: Laboratory Results - last 24 hr 11/23/24 11/23/24 11/23/24 21:53 21:54 22:35 MCV 89.3 MCH 31.6 MCHC 35.4 RDW 17.7 H Plt Count 171 D MPV 10.5 Immature Gran % (Auto) 0.5 H Neut % (Auto) 82.9 H Lymph % (Auto) 8.4 L [place] % (Auto) 8.1 Eos % (Auto) 0.1 Baso % (Auto) 0.0 Lymph # (Auto) 0.9 L [place] # (Auto) 0.9 Eos # (Auto) 0.0 Baso # (Auto) 0.0 Abs Immat Gran (auto) 0.05 H Absolute Neuts (auto) 9.2 H Absolute Nucleated RBC 0.090 H Nucleated RBC % (auto) 0.8 H PT 172.1 H INR 14.7 H* VBG pH 7.50 H VBG pCO2 13 VBG pO2 149 VBG HCO3 10 L VBG O2 Saturation 99.0 VBG Base Excess -8.7 Anion Gap 21 H Estim Creat Clear Calc 36.2 Estimated GFR 37 Random Glucose 93 Lactic Acid Calcium 8.2 L D Total Bilirubin 5.6 H AST 1171 H ALT 1563 H Alkaline Phosphatase 160 H Ammonia Troponin I High Sens 321.9 H* D B-Natriuretic Peptide 3307 H Total Protein 5.5 L Albumin 3.5 Lipase 34 Hold Red Top Urine Color Urine Appearance Urine pH Ur Specific [place] Urine Protein Urine Glucose (UA) Urine Ketones Urine Blood Urine Nitrite Ur Leukocyte Esterase Urine Opiates Screen Ur Buprenorphine Scrn Ur Oxycodone Screen Urine Methadone Screen Urine Fentanyl Screen Acetaminophen Ur Barbiturates Screen Ur Phencyclidine Scrn Ur Amphetamines Screen U Benzodiazepines Scrn Urine Cocaine Screen U Marijuana (THC) Screen Influenza Type A (PCR) NEGATIVE Influenza Type B (PCR) NEGATIVE RSV RNA Qual (PCR) NEGATIVE SARS-CoV-2 RNA (RT-PCR) NEGATIVE 11/23/24 11/24/24 11/24/24 22:52 01:14 01:15 MCV MCH MCHC RDW Plt Count MPV Immature Gran % (Auto) Neut % (Auto) Lymph % (Auto) [place] % (Auto) Eos % (Auto) Baso % (Auto) Lymph # (Auto) [place] # (Auto) Eos # (Auto) Baso # (Auto) Abs Immat Gran (auto) Absolute Neuts (auto) Absolute Nucleated RBC Nucleated RBC % (auto) PT INR VBG pH VBG pCO2 VBG pO2 VBG HCO3 VBG O2 Saturation VBG Base Excess Anion Gap Estim Creat Clear Calc Estimated GFR Random Glucose Lactic Acid 9.3 H* Calcium Total Bilirubin AST ALT Alkaline Phosphatase Ammonia 157 H Troponin I High Sens 443.3 H* B-Natriuretic Peptide Total Protein Albumin Lipase Hold Red Top Urine Color Urine Appearance Urine pH Ur Specific [place] Urine Protein Urine Glucose (UA) Urine Ketones Urine Blood Urine Nitrite Ur Leukocyte Esterase Urine Opiates Screen Ur Buprenorphine Scrn Ur Oxycodone Screen Urine Methadone Screen Urine Fentanyl Screen Acetaminophen Ur Barbiturates Screen Ur Phencyclidine Scrn Ur Amphetamines Screen U Benzodiazepines Scrn Urine Cocaine Screen U Marijuana (THC) Screen Influenza Type A (PCR) Influenza Type B (PCR) RSV RNA Qual (PCR) SARS-CoV-2 RNA (RT-PCR) 11/24/24 11/24/24 11/24/24 02:20 02:28 04:04 MCV MCH MCHC RDW Plt Count MPV Immature Gran % (Auto) Neut % (Auto) Lymph % (Auto) [place] % (Auto) Eos % (Auto) Baso % (Auto) Lymph # (Auto) [place] # (Auto) Eos # (Auto) Baso # (Auto) Abs Immat Gran (auto) Absolute Neuts (auto) Absolute Nucleated RBC Nucleated RBC % (auto) PT INR VBG pH 7.28 L VBG pCO2 28 VBG pO2 30 VBG HCO3 14 L VBG O2 Saturation 32.0 VBG Base Excess -10.9 Anion Gap Estim Creat Clear Calc Estimated GFR Random Glucose Lactic Acid Calcium Total Bilirubin AST ALT Alkaline Phosphatase Ammonia Troponin I High Sens B-Natriuretic Peptide Total Protein Albumin Lipase Hold Red Top See Note Urine Color Dark Yellow Urine Appearance Clear Urine pH 5.5 Ur Specific [place] 1.020 Urine Protein Trace Urine Glucose (UA) Negative Urine Ketones Negative Urine Blood Negative Urine Nitrite Negative Ur Leukocyte Esterase Negative Urine Opiates Screen Not Detected Ur Buprenorphine Scrn Not Detected Ur Oxycodone Screen Not Detected Urine Methadone Screen Not Detected Urine Fentanyl Screen Not Detected Acetaminophen < 3 Ur Barbiturates Screen Not Detected Ur Phencyclidine Scrn Not Detected Ur Amphetamines Screen Not Detected U Benzodiazepines Scrn Not Detected Urine Cocaine Screen Not Detected U Marijuana (THC) Screen Not Detected Influenza Type A (PCR) Influenza Type B (PCR) RSV RNA Qual (PCR) SARS-CoV-2 RNA (RT-PCR) Assessment and Plan (1) Shock, unspecified: Status: Acute (2) Acute hypotension: Status: Acute (3) Hepatic failure, acute: Status: Acute (4) Coagulopathy: Status: Acute (5) Transaminitis: Status: Acute (6) Atrial fibrillation with rapid ventricular response: Status: Acute (7) Dyspnea: Status: Acute (8) CALISTA (acute kidney injury): Status: Acute (9) Elevated troponin: Status: Acute (10) Jaundice: Status: Acute (11) Congestive heart failure: Status: Acute Plan ?64-year-old male with a past medical history of coronary artery disease s/p? stent in [place], s/p valve replacement,? atrial fibrillation on Eliquis and history of medication noncompliance? admitted to ICU for management of acute hepatic failure? with coagulopathy? Neuro: no acute issues Cardiac:?? Shock, ? undifferentiated, Patient hypotensive, elevated lactate.? Cardiogenic versus distributive.? Patient does not seem to have severe infection, as white count is only slightly elevated,? no evidence of severe septic shock.? Patient in acute? hepatic failure? and has some degree of cardiogenic involvement with heart failure exacerbation/ afib rvr.? Blood pressure is stable with systolics of 90s after fluid resuscitation.? We will continue to monitor blood pressure closely.? May require pressors if blood pressure? continues to be significantly low.? ?Congestive heart failure:? unsure if patient has a history of Congestive heart failure diagnoses,? but when he was seen in May of 2024 he did have some degree of pulmonary edema,? and was given Lasix and was to follow up with demo specialist in this area.? Patient admits to noncompliance with medications.? Chest x-ray showing? mild pulmonary edema,? prior to Lasix fluids administration.? Patient received a total of 40 mg dose of Lasix in the emergency department.? We will continue to monitor diuresing. ? Echo in the morning ?Atrial fibrillation with rapid ventricular rate:? patient has a underlying history of AFib,? on Eliquis and metoprolol,? but noncompliant with medications.? Received 5 mg of IV push metoprolol in the emergency department,? AFib is well controlled now.? ?Elevated troponin:? denies chest pain,? troponins elevated from 321 to 443.? No evidence of ischemic changes.? Likely due to Congestive heart failure exacerbation Pulmonary: ?Dyspnea:? patient presented with shortness of breath,? is on room air. PE Less likely, but will obtain Chest CT angio to rule out PE? due to history of? AFib and noncompliance with Eliquis Renal:? CALISTA- ? nonoliguric, This is most likely hypoperfusion.? 2liter received in ED. No more crystalloids due to risk of third spacing and CHF exac. Continue to check renal indices and urine output.? Endo:? No acute issues.?? GI:?? Hepatic failure with coagulopathy: ?Jaundiced skin,? patient with transaminitis, Total bill 5.6, INR 14.7,? PT 172.1, ammonia level 157. Normal levels in May of 2024. Patient? is a poor historian, but denies? alcohol use/? history of liver issues.? Acetaminophen level is negative.? No evidence of GI bleeding. Abdominal ultrasound 3 small simple hepatic cysts in large simple right renal cyst.? Will obtain abdominal CT. Will give x2 FFP and vitamin K for INR.? Continue to monitor liver enzymes and coags closely.? Heme/onc:? no acute issues ID: ?Leukocytosis:? mild leukocytosis,? no evidence of severe infection.? Received empiric dose of ceftriaxone in the emergency department. ? Blood cultures pending.? We will hold on on empiric antibiotics,? as no clear source for infection identified at this time.? Chest CT and? abdominal CT pending. Psych:? No acute issues. Prophylaxis:? Due to? supratherapeutic INR Compression devices ? Code? status: ? ? FULL CODE.? Critical care time: x 60 min of critical care time?
[2024-11-24 05:13] LABS: ~Lactic Acid-LAB USE ONLY 9.8 mmol/L (0.5-2.0)
[2024-11-24] MEDS: iohexoL 350 MG/ML 100 ML INFUS..BTL 85 ML IV (05:21)
[2024-11-24] MEDS: Furosemide 20 MG/2 ML VIAL IVPUSH (05:34)
--- NOTE | 2024-11-24 05:56 | PC.NURSE ---
fentanyl and lasix given, vitals stable, mentation stable. alert and oriented. drinking katelynn javid in bed. call aldana in reach. this RN unable to enter vital signs on worklist. entered by [employer] Michael per this RN request
[2024-11-24] MEDS: Phytonadione (Vit K1) 10 MG in 0.9 % Sodium Chloride 50 ML 51 MG IV (06:33)
[2024-11-24 06:45] LABS: Reflex Lactate? 2 Y
--- NOTE | 2024-11-24 07:00 | CA_ITS ---
Transthoracic Echocardiogram Patient (Last, First, Middle): Harshal Simpson J Gender: Male Date of : 1960 Age: 64 Procedure Date: 11/24/2024 Procedure Type: Transthoracic Echocardiogram Location: ICU Height: 172.72 cm Weight: 70.76 kg BSA: 1.84 m2 Heart Rate: bpm BP: 93 / 55 mmHg Sales Representative Graphic Art: Referring MD: Damian Sams NP Symptoms: ? CHF Study Quality: Adequate/Contrast ECG Rhythm: Atrial Fibrillation Conclusions: - The left ventricular systolic function is severely decreased. The visually estimated ejection fraction is <10%. - A bioprosthetic mitral valve is present. The prosthetic mitral valve appears to be functioning normally. Findings Procedure Information Contrast agent, definity, is being given per protocol without apparent complications. Left Ventricle Moderately increased left ventricular cavity size. There is normal left ventricular wall thickness. The left ventricular systolic function is severely decreased. The visually estimated ejection fraction is <10%. There is severe global hypokinesis. There is paradoxical septal motion consistent with post-operative status. Diastolic function is indeterminate on the basis of available data. Right Ventricle Severely increased right ventricular cavity size. There is mild to moderately decreased right ventricular systolic function. Atria Severe biatrial enlargement. Aortic Valve There is mild calcification of the aortic valve. There is no aortic valve stenosis. There is mild aortic valve regurgitation. Mitral Valve A bioprosthetic mitral valve is present. The prosthetic mitral valve appears to be functioning normally. There is no mitral valve regurgitation. Mean gradient across the mitral valve 4 mm Hg at 116/Min. Pulmonic Valve The pulmonic valve is likely normal. Tricuspid Valve Normal tricuspid valve structure. There is mild tricuspid valve regurgitation. There is no evidence of pulmonary hypertension. Great Vessels The asc aorta is normal in size. Venous The inferior vena cava is normal in size and collapses less than 50% with inspiration. Pericardium/Pleural There is no evidence of pericardial effusion. Prior Study Comparison No prior study available for comparison. Measurements 2D Linear Measurements IVSd: 0.71 0.6-0.9/0.6-1.0 cm LVIDd: 6.21 3.9-5.3/4.2-5.9 cm LVIDd Index: 3.38 2.4-3.2/2.2-3.1 cm/m2 LVIDs: 5.66 2.0-3.6 cm LVPWd: 0.95 0.7-1.1 cm Ao Root: 3.00 2.1-3.5 cm LA Diam: 4.90 2.7-3.8/3.0-4.0 cm LAIDs Index: 2.66 1.5-2.3 cm/m2 LV Mass: 256.72 67-162/88-224 g LV Mass Index: 139.52 43-95/49-115 g/m2 LVOT Diam: 2.10 3.0+(-)1.3 cm 2D Systolic Function EF 4C: 7.10 >55% EF 2C: 2.37 >55% EF BiP: 2.42 >55% Mitral Valve MV VTI: 0.30 MV Pk Matias: 1.65 MV Mn Matias: 0.91 MV Pk Grad: 11.00 MV Mn Grad: 4.00 MV Pk E: 1.29 MV Decel Time: 139.00 E'Lateral: 6.31 E'Medial: 4.03 E/E' Med: 32.00 E/E' Lat: 20.40 PHT: 41.00 MVA PHT: 5.37 MVA Continuity: 1.34 Decel Mckinley: 9.30 Aortic Valve AoV Pk Matias: 1.59 AoV Mn Matias: 1.10 AoV VTI: 0.23 AoV Pk Grad: 10.00 Aov Mn Grad: 6.00 HIREN Cont.VTI: 1.75 LVOT LVOT Pk Matias: 0.73 LVOT Mn Matias: 0.51 LVOT VTI: 0.12 LVOT Pk Grad: 2.00 LVOT Mn Grad: 1.00 LVOT Diam: 2.10 LVOT Area: 3.46 Diastolic Function MV Pk E: 1.29 E'Medial: 4.03 E/E' Med: 32.00 E' Laterial: 6.31 E/E' Lat: 20.40 Right Ventricle TAPSE (mm): 13.00 Tricuspid Valve TR Pk Matias: 2.37 TR Pk Grad: 22.00 RA Press: 8.00 RVSP: 30.00 Great Vessels Aorta Ao Root-2D: 3.00 2.0-3.7 cm Ao Asc: 3.20 2.1-3.4 cm Pulmonary Valve PV Pk Matias: 0.58 Peak PV Grad: 1.00 Updated in Other Vendor System with Status of Final Paresh Aquino MD electronically signed on 11/24/2024 4:01:25 PM with status of Final
[2024-11-24] MEDS: Piperacillin Sodium/Tazobactam 4.5 GM in 0.9 % Sodium Chloride 100 ML IV (07:17)
[2024-11-24] MEDS: vancomycin HCL 1,250 MG in 0.9 % Sodium Chloride 250 ML 166.67 MG IV (07:18)
[2024-11-24 08:27] LABS: MANUAL DIFF FLAG NO
[2024-11-24 08:32] LABS: Basophils Percent Auto 0.1 % (0-2); Hematocrit 45.9 % (42.0-52.0); Hemoglobin 15.4 g/dl (14.0-18.0); Imm Gran Abs Auto 0.07 X10*3/uL (0.00-0.03); Imm Gran Pct Auto 0.6 % (0.0-0.4); Lymphocytes Absolute Auto 0.7 X10*3/uL (1.2-4.9); Lymphocytes Percent Auto 6.6 % (20-40); Mean Corpuscular HGB Conc 33.6 g/dl (31.0-36.0); Mean Corpuscular Hemoglobin 31.4 pg (27.0-33.0); Mean Corpuscular Volume 93.7 fL (80.0-98.0); Mean Platelet Volume 11.2 fL (9.4-12.4); Monocytes Absolute Auto 0.9 X10*3/uL (0.1-1.2); Monocytes Percent Auto 8.5 % (2-11); Neutrophils Absolute Auto 9.1 x10*3/uL (2.0-8.3); Neutrophils Percent Auto 84.2 % (45-73); Platelet Count 194 X10*3/uL (160-400); Red Cell Distribution Width 18.8 % (11.0-16.0); White Blood Count 10.9 X10*3/uL (4.8-10.8)
[2024-11-24 08:33] LABS: VBG Base Excess -12.2 mmol/L; VBG HCO3 13 mmol/L (22-26); VBG pCO2 29 mmHg; VBG pH 7.25 (7.32-7.43); VBG pO2 37 mmHg
[2024-11-24 08:38] LABS: Venous Blood Gas Refer to POC result
[2024-11-24] MEDS: Sodium Bicarbonate 8.4% 50 MEQ/50 ML SYRINGE IVPUSH ×2 (08:39→10:45)
[2024-11-24 08:49] LABS: Albumin Level 3.8 g/dL (3.5-5.0); Alkaline Phosphatase 165 U/L (39-117); Anion Gap 23 (12-20); Aspartate Amino Transferase 1156 U/L (5-37); Bilirubin Total 6.8 mg/dL (0.0-1.0); Blood Urea Nitrogen 82 mg/dL (9-16); Calcium 7.5 mg/dL (8.4-10.2); Carbon Dioxide 13 mmol/L (22-29); Chloride 99 mmol/L (96-108); Creatinine Clr Calc Pharmacy 36.1; Estimated Glomerular Filt Rate 34; Glucose Random 123 mg/dL (60-115); Magnesium 3.2 mg/dL (1.6-2.6); Phosphorus 5.7 mg/dL (2.7-4.5); Potassium 5.9 mmol/L (3.3-5.1); Sodium 129 mmol/L (135-145); Total Protein 6.1 g/dL (6.5-8.0)
[2024-11-24] MEDS: Calcium Gluconate/NaCl,Iso-Osm 1 GM/50 ML PLAST..BAG IV ×3 (08:54→15:22)
[2024-11-24 09:03] LABS: ~Lactic Acid-LAB USE ONLY 9.7 mmol/L (0.5-2.0)
[2024-11-24] MEDS: Furosemide 200 MG in 0.9 % Sodium Chloride 80 ML IVCONT (09:17)
[2024-11-24 09:26] LABS: Alanine Aminotransferase 1707 U/L (0-40)
[2024-11-24] MEDS: Sodium Bicarbonate 8.4% 150 MEQ in Dextrose 5 % 850 ML 100 MEQ IV (10:48)
--- NOTE | 2024-11-24 11:11 | PHA.MEDREC ---
Pharmacy Consult ? Medication Reconciliation Pharmacy has completed the medication reconciliation, spoke to patient at bedside who was sleepy but still answered when presented with drug names and doses. Stated he last took his meds the other night .
[2024-11-24 12:02] LABS: VBG Base Excess -5.4 mmol/L; VBG HCO3 16 mmol/L (22-26); VBG pCO2 25 mmHg; VBG pH 7.42 (7.32-7.43); VBG pO2 31 mmHg
[2024-11-24 12:21] LABS: Anion Gap 22 (12-20); Blood Urea Nitrogen 75 mg/dL (9-16); Calcium 8.1 mg/dL (8.4-10.2); Carbon Dioxide 16 mmol/L (22-29); Chloride 98 mmol/L (96-108); Creatinine Clr Calc Pharmacy 37.4; Estimated Glomerular Filt Rate 35; Glucose Random 172 mg/dL (60-115); Magnesium 2.7 mg/dL (1.6-2.6); Phosphorus 4.4 mg/dL (2.7-4.5); Potassium 5.1 mmol/L (3.3-5.1); Sodium 131 mmol/L (135-145)
[2024-11-24] MEDS: Heparin Sodium,Porcine 5,000 UNIT/ML VIAL 5000 UNIT SUBCUT (12:36)
[2024-11-24] MEDS: Metoprolol Tartrate 5 MG/5 ML VIAL IVPUSH (12:36)
[2024-11-24 13:02] LABS: HBS Num1 10.54 mIU/mL (0-7.99); HBc Num1 9.34 S/CO (0.00-0.79); HBsAGNum1 0.44 S/CO (0.00-0.99); Hepatitis A Antibody IgM 0.26 Index (0-0.79); Hepatitis B Surface Antigen Negative (Negative); ~HepC Num1 0.08 S/CO (0.00-0.79); ~Hepatitis A Antibody IgM Nonreactive (Nonreactive); ~Hepatitis C Antibody Nonreactive (Nonreactive)
[2024-11-24 13:51] LABS: Venous Blood Gas Refer to POC result
[2024-11-24 14:24] LABS: HBS Num2 12.21 mIU/mL (0-7.99); HBS Num3 12.36 mIU/mL (0-7.99); ~Hepatitis B Surface Antibody REACTIVE (Nonreactive)
[2024-11-24 14:25] LABS: HBc Num2 9.21 S/CO; HBc Num3 9.13 S/CO; Hepatitis B Core Antibody Reactive (Nonreactive)
--- NOTE | 2024-11-24 16:17 | P.DS_ITS ---
DS: Providers Provider Date of Service: 11/24/24 Date of admission: 11/24/24 04:20 Date of discharge: 11/24/24 Primary care physician: Allie River MD Attending physician on admission: Romy Rubin Consults: 11/24/24 16:05 Consult to Cardiology Routine Consulting Provider: [facility] Reason for consultation: Heart Failure Has provider been notified: Yes Attending physician on discharge: Romy Rubin DS: Transfer Hospital Acceptance Reason for Transfer: Higher Level Cardiovascular Care Name of Facility: [facility] DS: Diagnosis Discharge Diagnosis (1) Cardiogenic shock: Status: Acute (2) Atrial fibrillation with rapid ventricular response: Status: Acute (3) Congestive heart failure: Status: Acute (4) Hepatic failure, acute: Status: Acute (5) [place] (acute kidney injury): Status: Acute DS: Summary Hospital Course Hospital Course: patient is a 64 Y M w/ cardiovascular disease including reported CAD s/p stent, valvulopathy, congestive heart failure, c/b atrial fibrillation, reportedly on apixaban though unclear compliance, presenting initially to emergency department on 11/23 PM w/ dyspnea, found to be in atrial fibrillation w/ rapid ventricular response, as well as laboratories suggestive of liver failure and renal insufficiency, c/f cardiogenic shock; patient w/ intermittent hypotension, prompting ICU admission; ICU work-up included echocardiogram demonstrating LVEF 5%; cardiology consulted, w/ plan to transfer to [facility] for continued medical management? Status at Discharge Functional status at discharge: independent ambulation Time Attestation Discharge Coordination Time (in mins): 30 Quality: Safe Use of Opioids Does Pt have an Active Cancer Diagnosis on the Problem List?: No Quality: Stroke Does the patient have a stroke diagnosis?: No Physical Exam Vital Signs: Vital Signs: Last Vital Signs Temp 97.5 F 11/24/24 15:55 Pulse 112 H 11/24/24 15:55 Resp 48 H 11/24/24 15:55 BP 92/65 11/24/24 15:55 Pulse Ox 94 11/24/24 15:55 O2 Del Method Room Air 11/24/24 15:55 BMI result Body Mass Index 23.8 Const: General: cooperative, healthy appearing, comfortable, no acute distress, well developed, alert, awake and Physically active Orientation/consciousness: patient oriented x3 HEENT: Head: Yes normal to inspection, Yes normocephalic and Yes atraumatic Eyes: General: appearance normal, both eyes and all related structures Neck: Neck: Yes normal visual inspection, Yes full ROM, Yes no meningeal signs, Yes trachea midline and Yes supple Chest: Chest palpation & inspection: normal inspection of the chest Resp: Other: some appreciable increased work of breathing; no overt rales, rhonchi, wheezing Cardio: Rate: tachycardic Rhythm: abnormal rhythm GI: Inspection: Yes normal to inspection, No Abdominal wall edema and No distended Palpation (GI): Soft to palpation, not firm, nontender, no guarding and not rigid Skin: General skin exam: no rashes or lesions noted Neuro: General: patient oriented x3, tone normal, moves all extremities, no meningeal signs and no focal motor deficits Extrem: Other: capillary refill greater than 2 seconds throughout; no overt pitting edema General: Yes normal to inspection and Yes full ROM Psych: Appearance: grossly normal DS: Data Data Completed and Pending Labs on day of discharge: Laboratory Results - last 24 hr 11/23/24 11/23/24 11/23/24 21:53 21:54 22:35 WBC 11.1 H RBC 4.49 L Hgb 14.2 Hct 40.1 L MCV 89.3 MCH 31.6 MCHC 35.4 RDW 17.7 H Plt Count 171 D MPV 10.5 Immature Gran % (Auto) 0.5 H Neut % (Auto) 82.9 H Lymph % (Auto) 8.4 L [place] % (Auto) 8.1 Eos % (Auto) 0.1 Baso % (Auto) 0.0 Lymph # (Auto) 0.9 L [place] # (Auto) 0.9 Eos # (Auto) 0.0 Baso # (Auto) 0.0 Abs Immat Gran (auto) 0.05 H Absolute Neuts (auto) 9.2 H Absolute Nucleated RBC 0.090 H Nucleated RBC % (auto) 0.8 H PT 172.1 H INR 14.7 H* VBG pH 7.50 H VBG pCO2 13 VBG pO2 149 VBG HCO3 10 L VBG O2 Saturation 99.0 VBG Base Excess -8.7 Sodium 130 L Potassium 5.2 H D Chloride 102 Carbon Dioxide 12 L Anion Gap 21 H BUN 82 H Creatinine 1.85 H Estim Creat Clear Calc 36.2 Estimated GFR 37 Random Glucose 93 Lactic Acid Lactic Acid F/U @ 2Hr Lactic Acid F/U @ 4Hr Calcium 8.2 L D Phosphorus Magnesium Total Bilirubin 5.6 H AST 1171 H ALT 1563 H Alkaline Phosphatase 160 H Ammonia Troponin I High Sens 321.9 H* D B-Natriuretic Peptide 3307 H Total Protein 5.5 L Albumin 3.5 Lipase 34 Hold Red Top Urine Color Urine Appearance Urine pH Ur Specific [place] Urine Protein Urine Glucose (UA) Urine Ketones Urine Blood Urine Nitrite Ur Leukocyte Esterase Urine Opiates Screen Ur Buprenorphine Scrn Ur Oxycodone Screen Urine Methadone Screen Urine Fentanyl Screen Acetaminophen Ur Barbiturates Screen Ur Phencyclidine Scrn Ur Amphetamines Screen U Benzodiazepines Scrn Urine Cocaine Screen U Marijuana (THC) Screen Hepatitis A IgM Ab Hep Bs Antigen Hep Bs Antibody Hep B Core Total Ab Hep B Core IgM Ab Hepatitis C Ab (EIA) Influenza Type A (PCR) NEGATIVE Influenza Type B (PCR) NEGATIVE RSV RNA Qual (PCR) NEGATIVE SARS-CoV-2 RNA (RT-PCR) NEGATIVE Blood Type Antibody Screen 11/23/24 11/24/24 11/24/24 22:52 01:14 01:15 WBC RBC Hgb Hct MCV MCH MCHC RDW Plt Count MPV Immature Gran % (Auto) Neut % (Auto) Lymph % (Auto) [place] % (Auto) Eos % (Auto) Baso % (Auto) Lymph # (Auto) [place] # (Auto) Eos # (Auto) Baso # (Auto) Abs Immat Gran (auto) Absolute Neuts (auto) Absolute Nucleated RBC Nucleated RBC % (auto) PT INR VBG pH VBG pCO2 VBG pO2 VBG HCO3 VBG O2 Saturation VBG Base Excess Sodium Potassium Chloride Carbon Dioxide Anion Gap BUN Creatinine Estim Creat Clear Calc Estimated GFR Random Glucose Lactic Acid 9.3 H* Lactic Acid F/U @ 2Hr Lactic Acid F/U @ 4Hr Calcium Phosphorus Magnesium Total Bilirubin AST ALT Alkaline Phosphatase Ammonia 157 H Troponin I High Sens 443.3 H* B-Natriuretic Peptide Total Protein Albumin Lipase Hold Red Top Urine Color Urine Appearance Urine pH Ur Specific [place] Urine Protein Urine Glucose (UA) Urine Ketones Urine Blood Urine Nitrite Ur Leukocyte Esterase Urine Opiates Screen Ur Buprenorphine Scrn Ur Oxycodone Screen Urine Methadone Screen Urine Fentanyl Screen Acetaminophen Ur Barbiturates Screen Ur Phencyclidine Scrn Ur Amphetamines Screen U Benzodiazepines Scrn Urine Cocaine Screen U Marijuana (THC) Screen Hepatitis A IgM Ab Hep Bs Antigen Hep Bs Antibody Hep B Core Total Ab Hep B Core IgM Ab Hepatitis C Ab (EIA) Influenza Type A (PCR) Influenza Type B (PCR) RSV RNA Qual (PCR) SARS-CoV-2 RNA (RT-PCR) Blood Type Antibody Screen 11/24/24 11/24/24 11/24/24 02:20 02:28 04:04 WBC RBC Hgb Hct MCV MCH MCHC RDW Plt Count MPV Immature Gran % (Auto) Neut % (Auto) Lymph % (Auto) [place] % (Auto) Eos % (Auto) Baso % (Auto) Lymph # (Auto) [place] # (Auto) Eos # (Auto) Baso # (Auto) Abs Immat Gran (auto) Absolute Neuts (auto) Absolute Nucleated RBC Nucleated RBC % (auto) PT INR VBG pH 7.28 L VBG pCO2 28 VBG pO2 30 VBG HCO3 14 L VBG O2 Saturation 32.0 VBG Base Excess -10.9 Sodium Potassium Chloride Carbon Dioxide Anion Gap BUN Creatinine Estim Creat Clear Calc Estimated GFR Random Glucose Lactic Acid Lactic Acid F/U @ 2Hr Lactic Acid F/U @ 4Hr Calcium Phosphorus Magnesium Total Bilirubin AST ALT Alkaline Phosphatase Ammonia Troponin I High Sens B-Natriuretic Peptide Total Protein Albumin Lipase Hold Red Top See Note Urine Color Dark Yellow Urine Appearance Clear Urine pH 5.5 Ur Specific [place] 1.020 Urine Protein Trace Urine Glucose (UA) Negative Urine Ketones Negative Urine Blood Negative Urine Nitrite Negative Ur Leukocyte Esterase Negative Urine Opiates Screen Not Detected Ur Buprenorphine Scrn Not Detected Ur Oxycodone Screen Not Detected Urine Methadone Screen Not Detected Urine Fentanyl Screen Not Detected Acetaminophen < 3 Ur Barbiturates Screen Not Detected Ur Phencyclidine Scrn Not Detected Ur Amphetamines Screen Not Detected U Benzodiazepines Scrn Not Detected Urine Cocaine Screen Not Detected U Marijuana (THC) Screen Not Detected Hepatitis A IgM Ab Hep Bs Antigen Hep Bs Antibody Hep B Core Total Ab Hep B Core IgM Ab Hepatitis C Ab (EIA) Influenza Type A (PCR) Influenza Type B (PCR) RSV RNA Qual (PCR) SARS-CoV-2 RNA (RT-PCR) Blood Type Antibody Screen 11/24/24 11/24/24 11/24/24 04:39 08:06 08:07 WBC 10.9 H RBC 4.90 Hgb 15.4 Hct 45.9 MCV 93.7 MCH 31.4 MCHC 33.6 RDW 18.8 H Plt Count 194 MPV 11.2 Immature Gran % (Auto) 0.6 H Neut % (Auto) 84.2 H Lymph % (Auto) 6.6 L [place] % (Auto) 8.5 Eos % (Auto) 0.0 Baso % (Auto) 0.1 Lymph # (Auto) 0.7 L [place] # (Auto) 0.9 Eos # (Auto) 0.0 Baso # (Auto) 0.0 Abs Immat Gran (auto) 0.07 H Absolute Neuts (auto) 9.1 H Absolute Nucleated RBC 0.110 H Nucleated RBC % (auto) 1.0 H PT INR VBG pH VBG pCO2 VBG pO2 VBG HCO3 VBG O2 Saturation VBG Base Excess Sodium 129 L Potassium 5.9 H Chloride 99 Carbon Dioxide 13 L Anion Gap 23 H BUN 82 H Creatinine 2.00 H Estim Creat Clear Calc 36.1 Estimated GFR 34 Random Glucose 123 H Lactic Acid Lactic Acid F/U @ 2Hr 9.8 H* Lactic Acid F/U @ 4Hr 9.7 H* Calcium 7.5 L D Phosphorus 5.7 H Magnesium 3.2 H Total Bilirubin 6.8 H AST 1156 H ALT 1707 H Alkaline Phosphatase 165 H Ammonia Troponin I High Sens B-Natriuretic Peptide Total Protein 6.1 L Albumin 3.8 Lipase Hold Red Top Urine Color Urine Appearance Urine pH Ur Specific [place] Urine Protein Urine Glucose (UA) Urine Ketones Urine Blood Urine Nitrite Ur Leukocyte Esterase Urine Opiates Screen Ur Buprenorphine Scrn Ur Oxycodone Screen Urine Methadone Screen Urine Fentanyl Screen Acetaminophen Ur Barbiturates Screen Ur Phencyclidine Scrn Ur Amphetamines Screen U Benzodiazepines Scrn Urine Cocaine Screen U Marijuana (THC) Screen Hepatitis A IgM Ab Hep Bs Antigen Hep Bs Antibody Hep B Core Total Ab Hep B Core IgM Ab Hepatitis C Ab (EIA) Influenza Type A (PCR) Influenza Type B (PCR) RSV RNA Qual (PCR) SARS-CoV-2 RNA (RT-PCR) Blood Type A Positive Antibody Screen NEGATIVE 11/24/24 11/24/24 11/24/24 08:28 11:50 11:51 WBC RBC Hgb Hct MCV MCH MCHC RDW Plt Count MPV Immature Gran % (Auto) Neut % (Auto) Lymph % (Auto) [place] % (Auto) Eos % (Auto) Baso % (Auto) Lymph # (Auto) [place] # (Auto) Eos # (Auto) Baso # (Auto) Abs Immat Gran (auto) Absolute Neuts (auto) Absolute Nucleated RBC Nucleated RBC % (auto) PT INR VBG pH 7.25 L 7.42 VBG pCO2 29 25 VBG pO2 37 31 VBG HCO3 13 L 16 L VBG O2 Saturation 47.0 39.0 VBG Base Excess -12.2 -5.4 Sodium 131 L Potassium 5.1 Chloride 98 Carbon Dioxide 16 L Anion Gap 22 H BUN 75 H Creatinine 1.93 H Estim Creat Clear Calc 37.4 Estimated GFR 35 Random Glucose 172 H Lactic Acid Lactic Acid F/U @ 2Hr Lactic Acid F/U @ 4Hr Calcium 8.1 L D Phosphorus 4.4 Magnesium 2.7 H Total Bilirubin AST ALT Alkaline Phosphatase Ammonia Troponin I High Sens B-Natriuretic Peptide Total Protein Albumin Lipase Hold Red Top Urine Color Urine Appearance Urine pH Ur Specific [place] Urine Protein Urine Glucose (UA) Urine Ketones Urine Blood Urine Nitrite Ur Leukocyte Esterase Urine Opiates Screen Ur Buprenorphine Scrn Ur Oxycodone Screen Urine Methadone Screen Urine Fentanyl Screen Acetaminophen Ur Barbiturates Screen Ur Phencyclidine Scrn Ur Amphetamines Screen U Benzodiazepines Scrn Urine Cocaine Screen U Marijuana (THC) Screen Hepatitis A IgM Ab Nonreactive Hep Bs Antigen Negative Hep Bs Antibody REACTIVE Hep B Core Total Ab Reactive Hep B Core IgM Ab Cancelled Hepatitis C Ab (EIA) Nonreactive Influenza Type A (PCR) Influenza Type B (PCR) RSV RNA Qual (PCR) SARS-CoV-2 RNA (RT-PCR) Blood Type Antibody Screen Discharge Plan Discharge Anticipated Discharge Date/Time: 11/24/24 16:27 Patient Disposition: Xfer [facility] Discharge Diagnosis: Cardiogenic Shock Referrals: Allie River MD [Primary Care Provider] - 1 Week Discharge Medications: Continued simvastatin 40 mg tablet 40 mg PO BEDTIME trazodone 100 mg tablet 100 mg PO BEDTIME tiotropium bromide [Spiriva with HandiHaler] 18 mcg capsule, w/inhalation device 18 mcg INHALATION DAILY Eliquis 5 mg tablet 5 mg PO BID furosemide [Lasix] 20 mg tablet 20 mg PO DAILY Qty: 20 0RF Discharge Orders: Discharge Order (Routine); Ordered 11/24/24 Ordered By: Romy Rubin Diet: Low salt diet Activity on Discharge: As tolerated Stand Alone Forms: Patient Portal Discharge page Print Language: Serbian Care Plan Goals: You came to the emergency department for shortness of breath. We performed laboratory tests and an ultrasound of your heart, all of which are concerning for heart failure. We are transferring you to [facility] for further care. Health Concerns: You came to the emergency department for shortness of breath. We performed laboratory tests and an ultrasound of your heart, all of which are concerning fo r heart failure. We are transferring you to [facility] for further care. Plan of Treatment: You came to the emergency department for shortness of breath. We performed laboratory tests and an ultrasound of your heart, all of which are concerning for heart failure. We are transferring you to [facility] for further care. Assessment: You came to the emergency department for shortness of breath. We performed laboratory tests and an ultrasound of your heart, all of which are concerning for heart failure. We are transferring you to [facility] for further care.
[2024-11-24] MEDS: Norepinephrine Bitartrate/D5W 8 MG/250 ML PLAST..BAG 6.66 MG IVCONT (16:26)
--- NOTE | 2024-11-24 16:58 | P.CONCA_ITS ---
History of Present Illness History of Present Illness Date of Service: 11/24/24 Chief complaint: Acute Liver Failure Narrative: This is a cardiology consultation regarding question of cardiogenic shock. Patient is not a good historian not able to give me much information. 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 Stated history of coronary disease status post PCI in [place] as well as valve replacement but again not able to get any information definitively. There is also history of atrial fibrillation but not clear of duration. It seems that he came in for shortness of breath/rapid heart rates. In that context, he was found to be in atrial fibrillation in the 130s, tachypneic and hypotensive. He was admitted to the ICU for further care. Chest x-ray had shown pulmonary edema. Today, he underwent an echocardiogram and that shows severe LV dysfunction with an ejection fraction less than 10%. Hence we are asked to see him in consultation. Attempted to get a more detailed history but patient is not willing to really say anything. His answers are extremely vague. Also unable to clearly obtain symptom history either. He just states that he has been sick for months. There is mention of him not taking meds but he states he takes everything daily. He is listed to be on Eliquis. INRs more than 14 upon arrival. Unclear why. Review of Systems 2 Review of Systems: Patient unable to provide review of systems PMFSH Family History Pertinent family history: Unable to obtain Social History Social History Household Members: Other Household Members Other:: Nephew Housing: House Do you presently have visiting nurse or other home services: No Patient Tobacco Use Status: Current someday Tobacco user Tobacco use type: Cigarette Cigarettes Per Day: 2 Smoked in Last 30 Days: Yes Patient Interested in Nicotine Replacement: No Patient Given Instructions on How to Stop Smoking: Yes Date Education Initiated: 11/24/24 Second Hand Smoke Exposure: Yes Use of substances other than those prescribed or required for medical reasons: No Substance Use Type: Marijuana Currently Displaying Signs/Symptoms of Drug Intoxication Withdrawal: No Have you been hit, kicked, punched, or otherwise hurt by someone within the past year? If so, by whom?: No Do you feel safe in your current relationship?: No Current Relationship Is there a partner from a previous relationship who is making you feel unsafe now?: No Are you made to feel afraid or neglected: No Spiritual Healthcare Practices: none per patient Evangelical Healthcare Practices: none per patient Cultural Healthcare Practices: none per patient Advance Directives: No Advance Directives Information Provided: No Advance Directives on File: No Do you have a plan to hurt others: No Plan Recently lost weight without trying: No Eating poorly because of decreased appetite: No Nutrition Risks: No Nutritional Risk Poor oral hygiene: Yes Meds Allergies Allergy/AdvReac Type Severity Reaction Status Date / Time No Known Allergies Allergy Verified 11/23/24 21:33 Active Medications: Current Medications Ceftriaxone Sodium (Ceftriaxone Sodium 1 Gm Vial) 1 gm IVPUSH Q24H [facility] Last Admin: 11/24/24 08:39 Dose: 1 gm Heparin Sodium (Porcine) (Heparin Sodium,Porcine 5,000 Unit/Ml Vial) 5,000 unit SUBCUT Q8H [facility] Last Admin: 11/24/24 12:36 Dose: 5,000 unit Furosemide 200 mg/ Sodium (Chloride) 100 mls @ 2.5 mls/hr IVCONT .Q24H [facility] Last Admin: 11/24/24 09:17 Dose: 5 mg/hr, 2.5 mls/hr Sodium Bicarbonate 150 meq/ (Dextrose) 1,000 mls @ 100 mls/hr IV .Q10H [facility] Last Admin: 11/24/24 10:48 Dose: 100 mls/hr Norepinephrine Bitartrate (Levophed) 8 mg in 250 mls @ 0 mls/hr IVCONT .Q0M [facility]; Protocol Last Admin: 11/24/24 16:26 Dose: 0.05 mcg/kg/min, 6.66 mls/hr Home Medications ?Medication ?Instructions ?Recorded ?Confirmed ?Last Taken ?Type apixaban 5 mg tablet (Eliquis) 5 mg PO BID 11/24/24 11/24/24 Unknown History simvastatin 40 mg tablet 40 mg PO BEDTIME 11/24/24 11/24/24 Unknown History tiotropium bromide 18 mcg capsule 18 mcg inhalation DAILY 11/24/24 11/24/24 Unknown History with inhalation device (Spiriva with HandiHaler) trazodone 100 mg tablet 100 mg PO BEDTIME 11/24/24 11/24/24 Unknown History Physical Exam 2 Vital Signs: Vital Signs: Last Vital Signs Temp 97.3 F 11/24/24 16:30 Pulse 123 H 11/24/24 16:54 Resp 42 H 11/24/24 16:54 BP 97/70 11/24/24 16:54 Pulse Ox 90 L 11/24/24 16:54 O2 Del Method Room Air 11/24/24 16:54 BMI result Body Mass Index 23.8 Const: General: ill appearing Orientation/consciousness: patient oriented x3 HEENT: Other: Unremarkable Head: Yes normal to inspection Neck: Neck: Yes normal visual inspection Chest: Chest palpation & inspection: normal inspection of the chest Resp: Other: No obvious findings on the front and sides. Could not examined back. He is tachypneic. Cardio: Palpation: normal PMI Heart sounds: S1 normal heart sound present, S2 normal heart sound present, no gallops, no murmurs and no rubs GI: Palpation (GI): Soft to palpation Back/Spine/Pelvis: Other: unremarkable Skin: General skin exam: no rashes or lesions noted Neuro: General: patient oriented x3 Extrem: General: Yes normal to inspection Psych: Mental Status: mental status grossly normal Objective Labs and Meds 11/24/24 08:07 11/24/24 11:50 Lab results: Laboratory Results - last 24 hr 11/23/24 11/23/24 11/23/24 21:53 21:54 22:35 WBC 11.1 H RBC 4.49 L Hgb 14.2 Hct 40.1 L MCV 89.3 MCH 31.6 MCHC 35.4 RDW 17.7 H Plt Count 171 D MPV 10.5 Immature Gran % (Auto) 0.5 H Neut % (Auto) 82.9 H Lymph % (Auto) 8.4 L [place] % (Auto) 8.1 Eos % (Auto) 0.1 Baso % (Auto) 0.0 Lymph # (Auto) 0.9 L [place] # (Auto) 0.9 Eos # (Auto) 0.0 Baso # (Auto) 0.0 Abs Immat Gran (auto) 0.05 H Absolute Neuts (auto) 9.2 H Absolute Nucleated RBC 0.090 H Nucleated RBC % (auto) 0.8 H PT 172.1 H INR 14.7 H* VBG pH 7.50 H VBG pCO2 13 VBG pO2 149 VBG HCO3 10 L VBG O2 Saturation 99.0 VBG Base Excess -8.7 Sodium 130 L Potassium 5.2 H D Chloride 102 Carbon Dioxide 12 L Anion Gap 21 H BUN 82 H Creatinine 1.85 H Estim Creat Clear Calc 36.2 Estimated GFR 37 Random Glucose 93 Lactic Acid Lactic Acid F/U @ 2Hr Lactic Acid F/U @ 4Hr Calcium 8.2 L D Phosphorus Magnesium Total Bilirubin 5.6 H AST 1171 H ALT 1563 H Alkaline Phosphatase 160 H Ammonia Troponin I High Sens 321.9 H* D B-Natriuretic Peptide 3307 H Total Protein 5.5 L Albumin 3.5 Lipase 34 Hold Red Top Urine Color Urine Appearance Urine pH Ur Specific [place] Urine Protein Urine Glucose (UA) Urine Ketones Urine Blood Urine Nitrite Ur Leukocyte Esterase Urine Opiates Screen Ur Buprenorphine Scrn Ur Oxycodone Screen Urine Methadone Screen Urine Fentanyl Screen Acetaminophen Ur Barbiturates Screen Ur Phencyclidine Scrn Ur Amphetamines Screen U Benzodiazepines Scrn Urine Cocaine Screen U Marijuana (THC) Screen Hepatitis A IgM Ab Hep Bs Antigen Hep Bs Antibody Hep B Core Total Ab Hep B Core IgM Ab Hepatitis C Ab (EIA) Influenza Type A (PCR) NEGATIVE Influenza Type B (PCR) NEGATIVE RSV RNA Qual (PCR) NEGATIVE SARS-CoV-2 RNA (RT-PCR) NEGATIVE Blood Type Antibody Screen 11/23/24 11/24/24 11/24/24 22:52 01:14 01:15 WBC RBC Hgb Hct MCV MCH MCHC RDW Plt Count MPV Immature Gran % (Auto) Neut % (Auto) Lymph % (Auto) [place] % (Auto) Eos % (Auto) Baso % (Auto) Lymph # (Auto) [place] # (Auto) Eos # (Auto) Baso # (Auto) Abs Immat Gran (auto) Absolute Neuts (auto) Absolute Nucleated RBC Nucleated RBC % (auto) PT INR VBG pH VBG pCO2 VBG pO2 VBG HCO3 VBG O2 Saturation VBG Base Excess Sodium Potassium Chloride Carbon Dioxide Anion Gap BUN Creatinine Estim Creat Clear Calc Estimated GFR Random Glucose Lactic Acid 9.3 H* Lactic Acid F/U @ 2Hr Lactic Acid F/U @ 4Hr Calcium Phosphorus Magnesium Total Bilirubin AST ALT Alkaline Phosphatase Ammonia 157 H Troponin I High Sens 443.3 H* B-Natriuretic Peptide Total Protein Albumin Lipase Hold Red Top Urine Color Urine Appearance Urine pH Ur Specific [place] Urine Protein Urine Glucose (UA) Urine Ketones Urine Blood Urine Nitrite Ur Leukocyte Esterase Urine Opiates Screen Ur Buprenorphine Scrn Ur Oxycodone Screen Urine Methadone Screen Urine Fentanyl Screen Acetaminophen Ur Barbiturates Screen Ur Phencyclidine Scrn Ur Amphetamines Screen U Benzodiazepines Scrn Urine Cocaine Screen U Marijuana (THC) Screen Hepatitis A IgM Ab Hep Bs Antigen Hep Bs Antibody Hep B Core Total Ab Hep B Core IgM Ab Hepatitis C Ab (EIA) Influenza Type A (PCR) Influenza Type B (PCR) RSV RNA Qual (PCR) SARS-CoV-2 RNA (RT-PCR) Blood Type Antibody Screen 11/24/24 11/24/24 11/24/24 02:20 02:28 04:04 WBC RBC Hgb Hct MCV MCH MCHC RDW Plt Count MPV Immature Gran % (Auto) Neut % (Auto) Lymph % (Auto) [place] % (Auto) Eos % (Auto) Baso % (Auto) Lymph # (Auto) [place] # (Auto) Eos # (Auto) Baso # (Auto) Abs Immat Gran (auto) Absolute Neuts (auto) Absolute Nucleated RBC Nucleated RBC % (auto) PT INR VBG pH 7.28 L VBG pCO2 28 VBG pO2 30 VBG HCO3 14 L VBG O2 Saturation 32.0 VBG Base Excess -10.9 Sodium Potassium Chloride Carbon Dioxide Anion Gap BUN Creatinine Estim Creat Clear Calc Estimated GFR Random Glucose Lactic Acid Lactic Acid F/U @ 2Hr Lactic Acid F/U @ 4Hr Calcium Phosphorus Magnesium Total Bilirubin AST ALT Alkaline Phosphatase Ammonia Troponin I High Sens B-Natriuretic Peptide Total Protein Albumin Lipase Hold Red Top See Note Urine Color Dark Yellow Urine Appearance Clear Urine pH 5.5 Ur Specific [place] 1.020 Urine Protein Trace Urine Glucose (UA) Negative Urine Ketones Negative Urine Blood Negative Urine Nitrite Negative Ur Leukocyte Esterase Negative Urine Opiates Screen Not Detected Ur Buprenorphine Scrn Not Detected Ur Oxycodone Screen Not Detected Urine Methadone Screen Not Detected Urine Fentanyl Screen Not Detected Acetaminophen < 3 Ur Barbiturates Screen Not Detected Ur Phencyclidine Scrn Not Detected Ur Amphetamines Screen Not Detected U Benzodiazepines Scrn Not Detected Urine Cocaine Screen Not Detected U Marijuana (THC) Screen Not Detected Hepatitis A IgM Ab Hep Bs Antigen Hep Bs Antibody Hep B Core Total Ab Hep B Core IgM Ab Hepatitis C Ab (EIA) Influenza Type A (PCR) Influenza Type B (PCR) RSV RNA Qual (PCR) SARS-CoV-2 RNA (RT-PCR) Blood Type Antibody Screen 11/24/24 11/24/24 11/24/24 04:39 08:06 08:07 WBC 10.9 H RBC 4.90 Hgb 15.4 Hct 45.9 MCV 93.7 MCH 31.4 MCHC 33.6 RDW 18.8 H Plt Count 194 MPV 11.2 Immature Gran % (Auto) 0.6 H Neut % (Auto) 84.2 H Lymph % (Auto) 6.6 L [place] % (Auto) 8.5 Eos % (Auto) 0.0 Baso % (Auto) 0.1 Lymph # (Auto) 0.7 L [place] # (Auto) 0.9 Eos # (Auto) 0.0 Baso # (Auto) 0.0 Abs Immat Gran (auto) 0.07 H Absolute Neuts (auto) 9.1 H Absolute Nucleated RBC 0.110 H Nucleated RBC % (auto) 1.0 H PT INR VBG pH VBG pCO2 VBG pO2 VBG HCO3 VBG O2 Saturation VBG Base Excess Sodium 129 L Potassium 5.9 H Chloride 99 Carbon Dioxide 13 L Anion Gap 23 H BUN 82 H Creatinine 2.00 H Estim Creat Clear Calc 36.1 Estimated GFR 34 Random Glucose 123 H Lactic Acid Lactic Acid F/U @ 2Hr 9.8 H* Lactic Acid F/U @ 4Hr 9.7 H* Calcium 7.5 L D Phosphorus 5.7 H Magnesium 3.2 H Total Bilirubin 6.8 H AST 1156 H ALT 1707 H Alkaline Phosphatase 165 H Ammonia Troponin I High Sens B-Natriuretic Peptide Total Protein 6.1 L Albumin 3.8 Lipase Hold Red Top Urine Color Urine Appearance Urine pH Ur Specific [place] Urine Protein Urine Glucose (UA) Urine Ketones Urine Blood Urine Nitrite Ur Leukocyte Esterase Urine Opiates Screen Ur Buprenorphine Scrn Ur Oxycodone Screen Urine Methadone Screen Urine Fentanyl Screen Acetaminophen Ur Barbiturates Screen Ur Phencyclidine Scrn Ur Amphetamines Screen U Benzodiazepines Scrn Urine Cocaine Screen U Marijuana (THC) Screen Hepatitis A IgM Ab Hep Bs Antigen Hep Bs Antibody Hep B Core Total Ab Hep B Core IgM Ab Hepatitis C Ab (EIA) Influenza Type A (PCR) Influenza Type B (PCR) RSV RNA Qual (PCR) SARS-CoV-2 RNA (RT-PCR) Blood Type A Positive Antibody Screen NEGATIVE 11/24/24 11/24/24 11/24/24 08:28 11:50 11:51 WBC RBC Hgb Hct MCV MCH MCHC RDW Plt Count MPV Immature Gran % (Auto) Neut % (Auto) Lymph % (Auto) [place] % (Auto) Eos % (Auto) Baso % (Auto) Lymph # (Auto) [place] # (Auto) Eos # (Auto) Baso # (Auto) Abs Immat Gran (auto) Absolute Neuts (auto) Absolute Nucleated RBC Nucleated RBC % (auto) PT INR VBG pH 7.25 L 7.42 VBG pCO2 29 25 VBG pO2 37 31 VBG HCO3 13 L 16 L VBG O2 Saturation 47.0 39.0 VBG Base Excess -12.2 -5.4 Sodium 131 L Potassium 5.1 Chloride 98 Carbon Dioxide 16 L Anion Gap 22 H BUN 75 H Creatinine 1.93 H Estim Creat Clear Calc 37.4 Estimated GFR 35 Random Glucose 172 H Lactic Acid Lactic Acid F/U @ 2Hr Lactic Acid F/U @ 4Hr Calcium 8.1 L D Phosphorus 4.4 Magnesium 2.7 H Total Bilirubin AST ALT Alkaline Phosphatase Ammonia Troponin I High Sens B-Natriuretic Peptide Total Protein Albumin Lipase Hold Red Top Urine Color Urine Appearance Urine pH Ur Specific [place] Urine Protein Urine Glucose (UA) Urine Ketones Urine Blood Urine Nitrite Ur Leukocyte Esterase Urine Opiates Screen Ur Buprenorphine Scrn Ur Oxycodone Screen Urine Methadone Screen Urine Fentanyl Screen Acetaminophen Ur Barbiturates Screen Ur Phencyclidine Scrn Ur Amphetamines Screen U Benzodiazepines Scrn Urine Cocaine Screen U Marijuana (THC) Screen Hepatitis A IgM Ab Nonreactive Hep Bs Antigen Negative Hep Bs Antibody REACTIVE Hep B Core Total Ab Reactive Hep B Core IgM Ab Cancelled Hepatitis C Ab (EIA) Nonreactive Influenza Type A (PCR) Influenza Type B (PCR) RSV RNA Qual (PCR) SARS-CoV-2 RNA (RT-PCR) Blood Type Antibody Screen ECG Interpretation: EKG with atrial fibrillation at a rate of 113/Min. Nonspecific ST-T changes. Possible LVH. Prior to this, we do not have an EKG for almost 20 years. EKG then from 2005 showed sinus rhythm. Assessment and Plan (1) Cardiogenic shock: Status: Acute (2) Atrial fibrillation with rapid ventricular response: Status: Acute (3) Coagulopathy: Status: Acute Plan In the echocardiogram, severe LV dysfunction with an ejection fraction of less than 10%. Normally functioning bioprosthetic mitral valve. In the labs, creatinine is 1.9. BUN is 75. Elevated lactic acid. Abnormal liver enzymes. Elevated cardiac BNP/troponins. Blood pressures in the 80s and getting started on Levophed. Overall, suspect cardiogenic shock with multiorgan dysfunction. Unclear if he has been having atrial fibrillation with rapid rate of prolonged duration causing severe LV dysfunction and cardiogenic shock leading to multiorgan failure. At this time agree with starting pressors for blood pressure support. Once blood pressures bit more stable, possibly try small dose of beta-blockers controlled rate. Will need EP evaluation for further care. Need to decide if it is worth doing a NAZARIO/cardioversion and restoring sinus rhythm versus proceeding with AV sarkis ablation/BUTTONHOLE FACER placement. Will need CCU level of care. Transferred to [facility]. Procedures Date of Service Date of Service: 11/24/24
--- NOTE | 2024-11-24 17:25 | ECG_ITS ---
Test Reason : ACS? Blood Pressure : */* mmHG Vent. Rate : 126 BPM Atrial Rate : * BPM P-R Int : * ms QRS Dur : 114 ms QT Int : 380 ms P-R-T Axes : * -42 163 degrees QTcB Int : 550 ms Atrial fibrillation with rapid ventricular response Left axis deviation Minimal voltage criteria for LVH, may be normal variant ( [place] product ) T wave abnormality, consider lateral ischemia Abnormal ECG When compared with ECG of 24-Nov-2024 03:56, No significant change was found Referred By: Romy Rubin Electronically Signed By: ROBIN MERAZ
[2024-11-24 18:51] LABS: Acetaminophen LAB < 3 mcg/mL (<30); Bilirubin Direct 2.1 mg/dL (0.0-0.5); Gamma Glutamyl Transpeptidase 38 U/L (11-51)
[2024-11-24 18:52] LABS: Anion Gap 22 (12-20); Blood Urea Nitrogen 75 mg/dL (9-16); Calcium 7.6 mg/dL (8.4-10.2); Carbon Dioxide 18 mmol/L (22-29); Chloride 96 mmol/L (96-108); Creatinine Clr Calc Pharmacy 38.6; Estimated Glomerular Filt Rate 37; Glucose Random 109 mg/dL (60-115); Magnesium 2.6 mg/dL (1.6-2.6); Phosphorus 4.1 mg/dL (2.7-4.5); Potassium 4.9 mmol/L (3.3-5.1); Sodium 131 mmol/L (135-145)
== END 2024-11-24 19:19 | disposition short-term general hospital (02) | DRG 441 ==
LOC: HO.ED 11-24 04:16 → HO.EDOVER 11-24 04:26 → HO.ICU 11-24 04:30
PROVIDERS: Admitting Provider Registered Nurse Community Health; Emergency Provider Emergency Medicine; PCP Internal Medicine; Visit Provider Internal Medicine Critical Care Medicine
DX: K72.00 Acute and subacute hepatic failure without coma (principal); R57.0 Cardiogenic shock; D68.4 Acquired coagulation factor deficiency; N17.9 Acute kidney failure, unspecified; F17.210 Nicotine dependence, cigarettes, uncomplicated; I50.9 Heart failure, unspecified; Z71.6 Tobacco abuse counseling; T50.1X6A Underdosing of loop [high-ceiling] diuretics, initial encounter; T44.7X6A Underdosing of beta-adrenoreceptor antagonists, initial encounter; I48.91 Unspecified atrial fibrillation; K76.89 Other specified diseases of liver; I25.10 Atherosclerotic heart disease of native coronary artery without angina pectoris; Z59.2 Discord with neighbors, lodgers and landlord; Z20.822 Contact with and (suspected) exposure to COVID-19; Z79.01 Long term (current) use of anticoagulants; Z79.899 Other long term (current) drug therapy
CPT/HCPCS: 0241U; 36415; 71045; 71275; 74177; 76705; 80048; 80053; 80143; 80307; 81003; 82140; 82248; 82803; 82977; 83605; 83690; 83735; 83880; 84100; 84484; 85025; 85610; 86704; 86706; 86709; 86803; 86850; 86900; 86901; 87040; 87340; 93005; 93306; 99285; J0613; J0696; J1644; J1940; J2270; J2543; J3010; J3371; J3430; P9017; Q9957; Q9967

== ENCOUNTER → 2024-11-23 21:41 | Outpatient (BNV) | payer MEDICARE, SELFPAY | PROVIDERS: Admitting Provider Registered Nurse Community Health; Emergency Provider Emergency Medicine; PCP Internal Medicine; Visit Provider Internal Medicine | DX: R94.31 Abnormal electrocardiogram [ECG] [EKG] (principal) | CPT/HCPCS: 93010 ==

== ENCOUNTER → 2024-11-23 22:30 | Outpatient (BNV) | payer MEDICARE, SELFPAY | PROVIDERS: Emergency Provider Emergency Medicine; PCP Internal Medicine; Visit Provider Radiology Diagnostic Radiology | DX: I51.7 Cardiomegaly (principal) | CPT/HCPCS: 71045 ==

== ENCOUNTER → 2024-11-24 04:20 | Outpatient (BNV) | payer MEDICARE, SELFPAY | PROVIDERS: Admitting Provider Registered Nurse Community Health; Emergency Provider Emergency Medicine; PCP Internal Medicine; Visit Provider Internal Medicine | DX: I48.91 Unspecified atrial fibrillation (principal); R57.0 Cardiogenic shock; D68.9 Coagulation defect, unspecified | CPT/HCPCS: 99233 ==

== ENCOUNTER → 2024-11-24 04:20 | Outpatient (BNV) | payer MEDICARE, SELFPAY | PROVIDERS: Admitting Provider Registered Nurse Community Health; Emergency Provider Emergency Medicine; PCP Internal Medicine; Visit Provider Registered Nurse Community Health | DX: I48.91 Unspecified atrial fibrillation (principal); R57.9 Shock, unspecified; D68.9 Coagulation defect, unspecified; K72.00 Acute and subacute hepatic failure without coma; N17.9 Acute kidney failure, unspecified; I50.9 Heart failure, unspecified | CPT/HCPCS: 99291; 99499 ==

== ENCOUNTER → 2024-11-24 | Outpatient (BNV) | payer MEDICARE, SELFPAY | PROVIDERS: Admitting Provider Registered Nurse Community Health; Emergency Provider Emergency Medicine; PCP Internal Medicine; Visit Provider Specialist | DX: K76.0 Fatty (change of) liver, not elsewhere classified (principal); N28.1 Cyst of kidney, acquired; K76.89 Other specified diseases of liver; J94.9 Pleural condition, unspecified; J90 Pleural effusion, not elsewhere classified; K82.8 Other specified diseases of gallbladder | CPT/HCPCS: 71275; 74177; 76705 ==